=== PATIENT | male | born 1955 | race Caucasian/White ===

== ENCOUNTER 2023-06-03 07:06 | Day surgery (SDC) | payer MEDICARE, BC, SELFPAY ==
[2023-06-03] VITALS (10 sets, daily range): BP systolic 146–167; BP diastolic 77–79; BMI 28.5
[2023-06-03 07:32] LABS: Hematocrit 40.5 % (39.0-52.0); Hemoglobin 14.6 g/dL (13.0-18.0); Mean Corpuscular Hgb 32.3 pg (27.0-31.0); Mean Corpuscular Volume 89.6 fL (80.0-94.0); Platelet Count 209 10^3/uL (130-400); Red Blood Cell Count 4.52 10^6/uL (4.70-6.10); Red Cell Dist. Width 12.6 % (11.5-14.5)
[2023-06-03 07:46] LABS: Blood Urea Nitrogen 20 mg/dl (9-20); Calcium 9.7 mg/dl (8.4-10.2); Carbon Dioxide 29 mmol/L (22-30); Chloride 105 mmol/L (98-107); Estimated Creatinine Clearance 107 ml/min; Glucose 170 mg/dl (70-99); Potassium 4.3 mmol/L (3.5-5.1); Sodium 140 mmol/L (135-145); eGFR > 60.00
[2023-06-03] MEDS: LOW STRENGTH ASPIRIN 81 MG PO (07:57)
[2023-06-03] MEDS: NSS 1000 IV ×2 (07:57→09:22)
--- NOTE | 2023-06-03 09:33 | ITS.CL.CATH ---
Surveying Crew Stake Runner - Catheterization
Cardiac Catheterization
Procedure Report:
LEFT HEART CATHETERIZATION
Date of Procedure: June 03, 2023
Procedures performed:
1: Coronary angiography
2: Left ventriculography
Primary Care Physician: GAIL Kilpatrick
Primary Civil Engineering Project Manager: Dr. Ga Barcenas
INDICATION: The patient is a 67-year-old man with a past medical history significant for hypertension who presents with angina. Echocardiography performed in December was benign. Nuclear perfusion imaging stress test performed January 09 of last
year showed a mild to moderate area of inferior ischemia. He has had persistent angina on medical therapy and is referred for cardiac catheterization.
ACCESS: The patient was prepped and draped in usual sterile fashion. A 6 Irish sheath was placed in the right radial artery using the Seldinger over the wire technique.
HEMODYNAMIC FINDINGS (mmHg):
LV(s/d,EDP): 148/9, 20
Ao(s/d,m): 148/68, 95
ANGIOGRAPHIC FINDINGS:
Single-plane Left Ventriculography in POWERS Projection: Normal LV systolic function with no clear regional wall motion abnormality. Visually estimated ejection fraction 55%. No significant mitral regurgitation.
Coronary Angiography:
Dominance: Left
Left Main: Normal
Left Anterior Descending: The left anterior descending artery is a medium caliber vessel that is moderately calcified particularly in the midportion. The LAD itself has a smooth ostial 40% stenosis with diffuse moderate nonobstructive proximal
disease. The mid LAD has smooth 50 to 70% disease with normal distal flow and good surgical target with only mild luminal irregularities. The LAD gives rise to 1 major diagonal branch which has a ostial 60-70% stenosis with normal flow.
Left Circumflex: The left circumflex is a large-caliber dominant vessel. The major first obtuse marginal branch is flush occluded and fills via left to left collaterals. The distal circumflex gives rise to 4 left-sided posterior left ventricular
branches and the left sided posterior descending artery is proximally occluded and fills via left to left collaterals.
Right Coronary: Proximal total occlusion. There appears to be RV marginal branch filling from left to right collaterals.
Fluoroscopy Time (min): 2.9
Radiation Dose (mGy): 431
DAP (Gy.cm2): 30
Closure device: None. A TR band was applied for hemostasis at the right wrist.
Complications: None.
ASSESSMENT:
1: Multivessel obstructive coronary disease. Especially given some degree of ostial LAD disease, although the mid LAD could be treated with stenting, I favor complete surgical revascularization in light of his calcific disease with targets in the
LAD, diagonal, OM, and possibly left PDA.
2: Preserved LV systolic function with no significant mitral rotation.
CONCLUSIONS and RECOMMENDATIONS:
1: CT surgical evaluation for CABG.
2: Continue medical therapy for coronary artery disease with clinical follow-up with Dr. Barcenas as scheduled.
Layo Martinez M.D.
Copy to: GAIL Kilpatrick
== END 2023-06-03 11:46 | disposition home or self-care (01) ==
LOC: CATH 07:06
PROVIDERS: ATTENDING PHYSICIAN Internal Medicine Interventional Cardiology; FAMILY PHYSICIAN Nurse Practitioner
DX: I25.119 Atherosclerotic heart disease of native coronary artery with unspecified angina pectoris (principal); I10 Essential (primary) hypertension; E78.5 Hyperlipidemia, unspecified; E11.9 Type 2 diabetes mellitus without complications; Z79.82 Long term (current) use of aspirin; Z79.84 Long term (current) use of oral hypoglycemic drugs
CPT/HCPCS: C1769; 80048; 85027; 93005; 93458; C1894; Q9967

== ENCOUNTER → 2023-06-18 13:21 | Outpatient (REF) | payer MEDICARE, BC, SELFPAY | LOC: RAD 13:21 | PROVIDERS: ATTENDING PHYSICIAN Thoracic Surgery (Cardiothoracic Vascular Surgery); FAMILY PHYSICIAN Nurse Practitioner; REFERRING PHYSICIAN Internal Medicine | DX: I25.10 Atherosclerotic heart disease of native coronary artery without angina pectoris (principal); Z01.818 Encounter for other preprocedural examination | CPT/HCPCS: 71250 ==

== ENCOUNTER 2023-06-24 04:48 | Inpatient (IN) | payer MEDICARE, BC, SELFPAY ==
[2023-06-19 09:12] LABS: Urine Albumin Negative (Neg - Trace); Urine Bilirubin Negative (Negative); Urine Character Clear (Clear); Urine Color Yellow; Urine Glucose 3+ (Negative); Urine Ketone Trace (Negative); Urine Leukocyte Negative (Negative); Urine Nitrite Negative (Negative); Urine Occult Blood Negative (Negative); Urine Urobilinogen Negative (Neg - 1+)
[2023-06-19 09:33] LABS: % Basophils 0.6 % (0-2); % Eosinophils 1.7 % (0-6); % Immature Granulocytes 0.2 % (0-0.5); % Lymphocytes 19.7 % (20.5-51.1); % Neutrophils 68.8 % (42.2-75.2); Absolute Eosinophils 0.1 10^3/uL (0-0.7); Absolute Lymphocytes 1.3 10^3/uL (1.2-3.4); Absolute Monocytes 0.6 10^3/uL (0.1-0.6); Absolute Neutrophils 4.5 10^3/uL (1.4-6.5); Hematocrit 43.8 % (39.0-52.0); Hemoglobin 15.6 g/dL (13.0-18.0); Mean Corp Hgb Conc. 35.6 g/dL (33.0-37.0); Mean Corpuscular Hgb 32.1 pg (27.0-31.0); Mean Corpuscular Volume 90.1 fL (80.0-94.0); Mean Platelet Volume 11.3 fL (7.4-10.4); Nucleated Red Blood Cells % 0 % (-); Platelet Count 229 10^3/uL (130-400); Red Blood Cell Count 4.86 10^6/uL (4.70-6.10); Red Cell Dist. Width 12.4 % (11.5-14.5); White Blood Cell Count 6.5 10^3/uL (4.8-10.8)
[2023-06-19 09:38] LABS: INR 0.95; PT 12.5 Sec (11.4-14.6)
[2023-06-19 09:40] LABS: APTT 27.5 Sec (23.4-35.0)
--- NOTE | 2023-06-19 09:44 | CM ---
Met with Mr. Cotton in [facility]. He states prior to admission he resides with his spouse in a two story home with one step to enter. He states he has a full flight of steps to get to bedroom/full bathroom. He states he has a powder room on the first
floor. He states prior to admission he was independent with ambulation and adls. He states he does not have any DME in the home. He states he has a prescription plan. He states his spouse will be home to assist in his care if needed. Medical
work-up in progress. The discharge plan is to return home with his spouse and a home visit by the Cardiothoracic Transitional Care Nurse when medically stable.
We reviewed pre-op and post-op routines. We reviewed the shower instructions. He has the soap, written instructions and the Cardiothoracic Surgery Educational Booklet. We also reviewed restrictions including sternal precautions and driving
restrictions. We discussed a home visit by the Cardiothoracic Transitional Care Nurse. He is agreeable to a home visit. The discharge plan is to return home with his spouse and a home visit by the Cardiothoracic Transitional Care Nurse when
medically stable.
[2023-06-19 09:59] LABS: ALT (SGPT) 34 U/L (0-50); AST (SGOT) 34 U/L (17-59); Albumin 4.9 g/dl (3.5-5.0); Alkaline Phosphatase 81 U/L (38-126); Blood Urea Nitrogen 18 mg/dl (9-20); Calcium 9.8 mg/dl (8.4-10.2); Carbon Dioxide 28 mmol/L (22-30); Chloride 103 mmol/L (98-107); Direct Bilirubin 0.4 mg/dl (0.0-0.4); Glucose 168 mg/dl (70-99); Sodium 138 mmol/L (135-145); Total Bilirubin 0.7 mg/dl (0.2-1.3); Total Protein 7.7 g/dl (6.3-8.2); eGFR > 60.00
[2023-06-19 11:18] VITALS: BMI 27.7
[2023-06-19 14:35] LABS: Glycohemoglobin (HgbA1c) 6.9 % (4.0-5.6)
[2023-06-24] VITALS (12 sets, daily range): BP systolic 90–145; BP diastolic 55–83; BMI 26.8
--- NOTE | 2023-06-24 05:07 | PTCARENOTE ---
Patient admitted same day for CABG with Dr. Meehan. intake questions completed, ABO drawn, medications administered preop. Patient clipped. Awaiting call to OR.
[2023-06-24] MEDS: BACTROBAN 2% OINTMENT 1 APPLIC NASAL (05:15)
[2023-06-24] MEDS: LOPRESSOR 25 MG PO (05:15)
[2023-06-24] MEDS: MAGNESIUM OXIDE 500 MG PO (05:16)
[2023-06-24] MEDS: PROTONIX 40 MG PO (05:16)
[2023-06-24 07:25] LABS: ACT+ - POC 93 Seconds (82-134)
[2023-06-24 07:29] LABS: Urine Albumin Negative (Neg - Trace); Urine Bilirubin Negative (Negative); Urine Character Clear (Clear); Urine Glucose 1+ (Negative); Urine Ketone Negative (Negative); Urine Leukocyte Negative (Negative); Urine Nitrite Negative (Negative); Urine Occult Blood Negative (Negative); Urine Specific Gravity 1.015 (<1.030); Urine Urobilinogen Negative (Neg - 1+)
[2023-06-24 07:53] LABS: Urine Color Yellow
[2023-06-24 10:36] LABS: ACT+ - POC 519 Seconds (82-134)
[2023-06-24 11:17] LABS: ACT+ - POC 641 Seconds (82-134)
[2023-06-24 11:44] LABS: ACT+ - POC 530 Seconds (82-134)
--- NOTE | 2023-06-24 11:48 | CM ---
Chart reviewed. Patient is in the OR today. Patient is independent of ADLS, lives with his in a 2 STH, 1 BLAISE, 0 DME. Plan is for the patient to return home with CT Transitional RN. CM to follow
[2023-06-24 12:14] LABS: ACT+ - POC 580 Seconds (82-134)
[2023-06-24 12:36] LABS: ACT+ - POC 509 Seconds (82-134)
[2023-06-24 12:51] LABS: ACT+ - POC 474 Seconds (82-134)
[2023-06-24 13:24] LABS: ACT+ - POC 123 Seconds (82-134)
[2023-06-24] MEDS: NOVOLOG FLEXPEN SC ×2 (14:00→15:07)
[2023-06-24] MEDS: NEURONTIN PO ×2 (14:00→15:07)
[2023-06-24] MEDS: TYLENOL PO (14:00)
--- NOTE | 2023-06-24 14:08 | W.CVOR.SURPR ---
CVOR Surgeon Immed Pre Op
-
I have examined this patient prior to performance of the scheduled procedure.
The patient's condition is unchanged from the time of the dictated/written History and
Physical and the patient is able to undergo the scheduled procedure.
--- NOTE | 2023-06-24 14:08 | W.IMMPOSTOP ---
Addendum entered and electronically signed by Patricio Meehan MD 06/24/23 15:16:
[id number]
Original Note:
Surgical Immed Post Op Note
-
CARDIAC SURGERY OPERATIVE NOTE:
Preoperative Dx:
Multivessel CAD
Postoperative Dx:
Same
Procedures:
1) Median sternotomy
2) Takedown of CHRISTIAN (narrow pedicle)
3) Endoscopic harvest/prep of L RA
4) Endoscopic harvest/prep of LLE GSV
5) CABG x 4 (CHRISTIAN to LAD, L RA to OM1, GSV to D1, GSV to L PDA)
Surgeon:
Patricio Meehan M.D.
Assistants:
Natacha MalhotraA.-CHilario; endoscopic harvest/prep of LLE GSV, assistant banquet manager throughout, closure
lAex Miles P.A.-C.; endoscopic harvest/prep of L RA, closure of L RA and L GSV incisions
Natacha EchevarriaA.-CHilario; closure; [id number]
Anesthesia:
Jenaro Mendez M.D. and Naye Lutz, C.R.N.A.
Perfusion:
Amanda Hunter, C.C.P.; XC: 76min, CPB: 128min
Findings:
CHRISTIAN was healthy conduit w/ very brisk blood flow; ELD 3.0mm
GSV was healthy conduit w/ slightly large ELD at 4.0-4.5mm
RA was healthy conduit w/ ELD 3.0mm
LAD was visible on the epicardial surface, normal johnson at midpoint anastomosis w/ ELD 3.5mm
D1 was visible on the epicardial surface, normal johnson, ELD 3.0mm
OM1 was visible as it left the AV groove before taking a shallow (<0.5mm) intramyocardial course, ELD 2.5mm
LPDA was visible on the epicardial surface, ELD 2.50mm
Excellent flow in all grafts
Post-NICOLAS:
Implants:
CT x 4 (B/L pleural, inferior mediastinal, superior mediastinal)
Sternal wires x 7
Sternal 'X' plate w/ 8 - 12mm screws
Sternal 'square' plate w/ 4 - 10mm screws
Complications:
None
Transfusions:
None
Condition:
57 sinus w/ isoelectric STs. 96/57. CVP 17. 98%
GTTS: levophed 2, precedex 0.5, insulin 1, cardene 3
Stable/guarded to CVICU
--- NOTE | 2023-06-24 14:30 | PTCARENOTE ---
Addendum entered by Janet Valdes RN 06/24/23 18:48:
Left radial graft site covered with Aquacel-CDI.
Original Note:
Received patient from CVOR at 1430. Pt intubated and sedated. RASS -5. PERRLA 3 brisk. POX 98%. ETT 8.0 24cm at the lip. SIMV 60% 14 550 5/5. Lungs clear throughout. Right and left pleural chest tubes y-sited to 1 atrium to -20cm suction draining
red fluid. Mediastinal x2 chest tubes y-sited to 1 atrium to -20 cm suction draining red fluid. No air leak, tidaling, crepitus noted. NSR with 1st degree block on tele with rates in the 60s. BP supported with levophed gtt. Cardene infusion on upon
arrival-for radial graft site. CVP 10. Right radial and left ulnar and bilateral DP pulses palpable. No edema noted. +Rub. Abdomen soft, round, nontender. Hypoactive BS. Miller catheter intact draining clear yellow urine. Sternal incision covered
with Aquacel-CDI. Chest tube dressing CDI. Left groin puncture site with small ooze, 2x2 gauze placed. Left SVG site approximated with skin glue, TYRESE wrap intact. Left lower leg ESTHER intact draining sanguinous drainage. Right IJ cordis and slick
intact. Right radial federico intact. All lines flushed, leveled, and zeroed with appropriate waveform. Right hand 20g PIV intact infusing insulin gtt per Critical Care Glycemic Protocol. See MAR for medication administration. See worklist for complete
nursing assessment. Post op EKG, labs, and CXR obtained.
[2023-06-24 14:48] LABS: Hematocrit 31.3 % (39.0-52.0); Hemoglobin 11.4 g/dL (13.0-18.0); Platelet Count 193 10^3/uL (130-400)
[2023-06-24 14:49] LABS: B.E. -1.2 mmol/L; HCO3 24.3 mmol/L (21-28); O2 Saturation % 99.7 % (94-98); PCO2 43 mmHg (35-48); PO2 206 mmHg (83-108); Potassium 4.1 mMOL/L (3.5-5.1); Sodium 140 mMOL/L (136-145); pH 7.36 (7.35-7.45)
[2023-06-24 14:51] LABS: Glucose - Point of Care 137 mg/dl (70-99)
--- NOTE | 2023-06-24 14:52 | CON.INTV ---
Consultation
Consultation Request
Date/Time Consultation Requested: 06-24-23
Date/Time Consultation Performed: 06-24-23
Requesting Provider: Dr Meehan
Performing Provider: Dr Olson
Reason for Consultation: s/p CABG MV
Medical History
-
Chief Complaint: s/p CABG
History of Present Illness:
Mr Patricio Cotton is a 67/M adm 06-23 for scheduled CABG for multivessel CAD.
Seen by Dr Meehan at office for evaluation of surgical intervention for multivessel CAD.
Received CABG x4, seen at CVICU, still sedated, well synchronized to MV
Past Medical History
Past Medical History: Other (see A&P form PMH/PSH)
Social History
Tobacco: Non-smoker
Alcohol: Occasional
Personal:
Living: With Family
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
Family History
Family History: CAD (M: CABG)
Allergies / Home Medications
Allergies
Allergy/AdvReac Type Severity Reaction Status Date / Time
sulfamethoxazole Allergy Unknown Swelling Verified 06/17/23 10:05
trimethoprim Allergy Unknown Swelling Verified 06/17/23 10:05
pollen extracts Allergy seasonal/gr Verified 06/17/23 10:05
ass
Home Medications
�Medication �Instructions �Recorded �Confirmed �Last Taken �Type
Saccharomyces boulardii 250 mg 250 mg PO .EVERY OTHER DAY 06/03/23 06/17/23 06/02/23 10:00 History
capsule Gastrointestinal Issue
aspirin 81 mg chewable tablet 81 mg PO QPM Blood Clot 06/03/23 06/24/23 06/23/23 18:30 History
Prevention/Tx
duloxetine 60 mg capsule,delayed 60 mg PO QPM Mental Health/Anxiety 06/03/23 06/24/23 06/23/23 15:00 History
release
isosorbide mononitrate 60 mg 60 mg PO QPM Blood Pressure 06/03/23 06/24/23 06/23/23 18:30 History
tablet,extended release 24 hr
ketoconazole 2 % topical cream 1 applic topical BID PRN as needed 06/03/23 06/17/23 Unknown History
losartan 50 mg tablet 50 mg PO QPM Blood Pressure 06/03/23 06/24/23 06/23/23 18:30 History
metformin 1,000 mg tablet 1,000 mg PO BID Diabetes 06/03/23 06/24/23 06/23/23 18:30 History
metoprolol succinate 50 mg 50 mg PO QPM Heart 06/03/23 06/24/23 06/23/23 18:30 History
tablet,extended release 24 hr Disease/Condition
multivitamin 1 tab PO DAILY Supplement 06/03/23 06/17/23 06/02/23 10:00 History
nitroglycerin 0.4 mg sublingual 0.4 mg sublingual Q5-15M PRN chest 06/03/23 06/17/23 Unknown History
tablet pain
vitamins A,C,J-lptq-ukcdex 4,296 1 cap PO QAM AND QPM Supplement 06/03/23 06/24/23 06/02/23 10:00 History
mcg-226 mg-90 mg capsule
(PreserVision AREDS)
Medical Marijuana 1 tab PO PRN PRN pain 06/17/23 06/17/23 Unknown History
rosuvastatin 20 mg tablet 20 mg PO QPM High Cholesterol 06/17/23 06/24/23 06/23/23 18:30 History
amlodipine 5 mg tablet 5 mg PO DAILY 06/24/23 06/24/23 Unknown History
Review of Systems
-
Unable to Obtain full review of systems at this time due to: Patient Intubation
Vitals / Labs / Diagnostic Testing
Vital Signs
Pulse BP
92 140/83
06/24/23 05:15 06/24/23 05:15
Laboratory Results
06/24/23
14:38
pH 7.36
pCO2 43
pO2 206 H
HCO3 24.3
O2 Delivery Level
Diagnostic Testing:
Physical Exam
-
HEENT: Normocephalic and Moist Mucous Membranes
Cardiovascular: Regular Rhythm, Peripheral Edema (n) and Other (RIJ cordis)
Respiratory: Clear, Non-Labored Respirations and Other (chest and mediastinal tubes)
GI: Soft and Non Distended
Neurology: Other (sedated)
Skin: Warm
General: Respiratory Distress (n)
Assessment
-
Assessment:
Mr Patricio Cotton is a 67/M adm 06-23 for scheduled CABG for multivessel CAD. Seen by Dr Meehan at office for evaluation of surgical intervention for multivessel CAD. Received CABG x4, seen at CVICU, still sedated, well synchronized to MV
Impression:
CAD, s/p CABG x 4 (CHRISTIAN to LAD, L RA to OM1, GSV to D1, GSV to L PDA)
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
Angina
HTN
HLD
T2DM
PAD
Cervical spine disc disease
BPH
OA L knee s/p L TKR
Bipolar disease
L inguinal hernia repair
Trigeminal neuralgia
Migraine
Occipital neuralgia
Insomnia
Post COVID chronic fatigue
Nonsmoker
Plan:
Ventilator settings reviewed
SIMV: [id number] (POx 99%)
FiO2 will be weaned
Minute ventilation will be adjusted
Arterial blood gases will be monitored
Preop CXR 05-10 PA/lat with no abnormalities
Postop CXR: ET, RIJ cordis, chest/med tubes in place. Sternotomy wiring, surgical clips. L basilar atelectatic changes
Spontaneous breathing trial will be attempted with hopeful extubation after anesthesia/sedation wear off
Pressors/antihypertensive/inotropes/diuretics will be provided as needed
Monitor chest tube output
Monitor hemoglobin
Monitor platelet count and coags
Transfuse blood product if needed
CT surgery following chest tubes
Monitor blood sugar
Insulin drip per protocol
Aspiration precautions
VAP prevention protocol
DVT prophylaxis
Early nutrition
Early mobilization
Critical care time: 35 min
D/w CTSx RN
--- NOTE | 2023-06-24 14:55 | W.PN.UPDATE ---
Update Note
Progress Note Update
67 year old male electively admitted 06/23 for CABG for multivessel coronary disease and history of stable angina.
IV fluids: 2500�
U.O.:� 750
UF:�1000
Blood:� none
Wires:� none
Inotropes:� none
Pressors:� Levophed
Sedatives:� Precedex
�
NEURO: sedated on Precedex, pupils +2mm B/L
RESP: #8OT @23cm> 550/60%/01/13. Lungs clear B/L. 2 mediastinal (0cc on arrival) and R/L pleural (0cc on arrival) chest tubes to -20cm suction. Sanguineous drainage
CV: RRR +S1, S2, no S3, +rub, no murmur. Aquacell dressing to median sternotomy. RIJ w/o [place]
ABD: round, soft, no BS
EXT: no edema, +2/4 DP pulses B/L, no femoral bruit, LLE TYRESE wrap intact w/ESTHER drain; right radial A-line intact
: Miller with clear yellow urine
�
A/P: POD #0 s/p CABG x 4 WOODWARD-LAD; radial-OM1; SVG-diag1; SVG-LPDA
NICOLAS: EF�55%. MIld MR, trace TR
- wean and extubate
# CAD
- will require ASA/Plavix, statin, beta-marisol
�
# acute surgical blood loss anemia-expected
- trend CBC
�
�
# T2DM (A1C 6.9)
- insulin infusion x 48h
- resume MFM 100mg BID with SSI after insulin infusion protocol completed
# Depression
- resume Duloxetine 60mg qPM when tolerating solids
�
# Hypertension
- resume�Norvasc 5mg daily when off Levophed and as BP permits
[2023-06-24 15:03] LABS: INR 1.42; PT 17.4 Sec (11.4-14.6)
[2023-06-24 15:04] LABS: APTT 30.1 Sec (23.4-35.0)
[2023-06-24] MEDS: DILAUDID 0.5 MG IV ×3 (15:05→23:54)
[2023-06-24] MEDS: PACERONE PO (15:07)
[2023-06-24] MEDS: NSS 500 IV (15:07)
[2023-06-24] MEDS: ANCEF 10 IV ×2 (15:07)
[2023-06-24 15:14] LABS: Blood Urea Nitrogen 18 mg/dl (9-20); Estimated Creatinine Clearance > 125 ml/min; Glucose 125 mg/dl (70-99); Magnesium 2.6 mg/dl (1.6-2.3)
--- NOTE | 2023-06-24 15:30 | PTCARENOTE ---
Pt awakens and follows commands to squeeze hands, wiggle toes, and shakes his head yes/no appropriately. RT notified and placed pt on cpap trial at 1535. POX 100% pt tolerating.
--- NOTE | 2023-06-24 15:51 | CON.CAR ---
Addendum entered and electronically signed by Erin Varghese MD 06/24/23 16:45:
I saw and examined the patient.
The Clinical Project Leader's note was reviewed and I agree with the note.
Comment: Patient is a 67-year-old gentleman with past medical history of hypertension, hyperlipidemia, type 2 diabetes mellitus, peripheral artery disease, trigeminal neuralgia, bipolar disorder, BPH who was found to have multivessel coronary artery
disease on heart catheterization performed June 03, 2023 in the setting of persistent angina despite optimal medical therapy and an abnormal stress test showing a mild to moderate area of inferior ischemia now status post four-vessel coronary
artery bypass grafting by Dr. Patricio Meehan on June 24, 2023 with WOODWARD to LAD, left radial artery to OM1, saphenous vein graft to diagonal, saphenous vein graft to L PDA with intraoperative NICOLAS showing LVEF of 55 to 60% without regional wall motion
abnormalities.
He remains intubated and sedated on 1 mcg of Levophed and 2.5 of Cardene for radial graft patency. Vital signs and lab work reviewed. ECG without signs of acute ischemia, nonspecific T wave change. QTc is prolonged.
On exam patient is intubated sedated, normal S1 and S2, no murmurs, rubs or gallops, sternotomy wound is covered, clean dry and intact, lungs are clear to auscultation anteriorly, chest tubes are in place with serosanguineous output, warm
extremities without significant edema.
Recommendations:
1. Wean ventilator as tolerated.
2. Wean pressors as tolerated.
3. We will work on resuming home cardiac medications as hemodynamics allow.
4. Continue supportive postoperative care.
Erin Varghese MD, [facility], [facility]
Original Note:
Consultation
Consultation Request
Date/Time Consultation Requested: 06/24/2023
Date/Time Consultation Performed: 06/24/2023
Requesting Provider: Dr. Meehan
Performing Provider: Alda Dominguez PA-C for Dr. Varghese
Reason for Consultation: CAD/CABG
Medical History
-
History of Present Illness:
The patient is a 67-year-old man with a past medical history significant for hypertension who presented to outside trim setter with angina in December 2022. Echocardiography performed in December 2022 was benign. Nuclear perfusion imaging stress
test performed January 09, 2023 showed a mild to moderate area of inferior ischemia. He had persistent angina on medical therapy and is referred for cardiac catheterization which was performed on 06/03/2023 and demonstrated multivessel obstructive
coronary artery disease including ostial LAD, mid LAD ostial diagonal disease occluded first obtuse marginal with left to left collaterals LPDA occlusion with left to left carotid collaterals and chronic total occlusion of RCA with [id number]
collaterals. Patient was referred to CT surgery for surgical evaluation and CABG. Patient was electively admitted 06/24/2023 and underwent CABG x 4. Cardiology being asked to see patient for postoperative medical management
PMH:
Multivessel coronary artery disease
Hypertension
Hyperlipidemia
Type 2 diabetes
PAD
Cervical spine disc disease
BPH
OA L knee s/p L TKR
Bipolar disease
L inguinal hernia repair
Trigeminal neuralgia
Migraine
Occipital neuralgia
Insomnia
Post COVID chronic fatigue
Past Medical History
Past Medical History: Other (see HPI)
Past Surgical History: Orthopedic (Lt TKA) and Other (Inguinal hernia repair)
Social History
Tobacco: Non-Smoker
Alcohol: Occasional
Drug: Marijuana (medical)
Personal: Single
Living: With Family
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
Family History
Family History: CAD (Mother CABG)
Allergies / Home Medications
Allergy/AdvReac Type Severity Reaction Status Date / Time
sulfamethoxazole Allergy Unknown Swelling Verified 06/17/23 10:05
trimethoprim Allergy Unknown Swelling Verified 06/17/23 10:05
pollen extracts Allergy seasonal/gr Verified 06/17/23 10:05
ass
�Medication �Instructions �Recorded �Confirmed �Type
Saccharomyces boulardii 250 mg 250 mg PO .EVERY OTHER DAY 06/03/23 06/17/23 History
capsule Gastrointestinal Issue
aspirin 81 mg chewable tablet 81 mg PO QPM Blood Clot 06/03/23 06/24/23 History
Prevention/Tx
duloxetine 60 mg capsule,delayed 60 mg PO QPM Mental Health/Anxiety 06/03/23 06/24/23 History
release
isosorbide mononitrate 60 mg 60 mg PO QPM Blood Pressure 06/03/23 06/24/23 History
tablet,extended release 24 hr
ketoconazole 2 % topical cream 1 applic topical BID PRN as needed 06/03/23 06/17/23 History
losartan 50 mg tablet 50 mg PO QPM Blood Pressure 06/03/23 06/24/23 History
metformin 1,000 mg tablet 1,000 mg PO BID Diabetes 06/03/23 06/24/23 History
metoprolol succinate 50 mg 50 mg PO QPM Heart 06/03/23 06/24/23 History
tablet,extended release 24 hr Disease/Condition
multivitamin 1 tab PO DAILY Supplement 06/03/23 06/17/23 History
nitroglycerin 0.4 mg sublingual 0.4 mg sublingual Q5-15M PRN chest 06/03/23 06/17/23 History
tablet pain
vitamins A,C,M-zfbx-mqjkix 4,296 1 cap PO QAM AND QPM Supplement 06/03/23 06/24/23 History
mcg-226 mg-90 mg capsule
(PreserVision AREDS)
Medical Marijuana 1 tab PO PRN PRN pain 06/17/23 06/17/23 History
rosuvastatin 20 mg tablet 20 mg PO QPM High Cholesterol 06/17/23 06/24/23 History
amlodipine 5 mg tablet 5 mg PO DAILY 06/24/23 06/24/23 History
Review of Systems
-
Unable to obtain full review of systems at this time due to: Patient Intubation
Physical Exam
Vital Signs
Temp Pulse Resp BP Pulse Ox
97.6 F 65 13 140/83 99
06/24/23 15:00 06/24/23 15:15 06/24/23 15:15 06/24/23 05:15 06/24/23 15:35
GEN: Patient intubated and sedated
HEENT: supple, anicteric, mmm
LUNGS: CTA anteriorly, no wheezes/rales
CV: Reg, S1/S2, no murmur, +rub LSB
ABD: soft, BS+, NT/ND
EXT: No edema, clubbing or cyanosis; legs wrapped in Abhishek wraps
NEURO: Unable to assess intubated and sedated
SKIN: No rash, warm, dry, pink
Lab Results
06/24/23 14:38
Impression / Plan
-
Primary Care Physician: GAIL Kilpatrick
Primary Driver'S Education Instructor: Dr. Ga Barcenas
Impression:
Presented 06/24/2023 for elective CABG
Multivessel coronary artery disease
s/p CABG x 4 (WOODWARD-LAD, Lt Radial-OM1, GSV to D1, GSV to L PDA)
Hypertension
Hyperlipidemia
Type 2 diabetes
PAD
Cervical spine disc disease
BPH
OA L knee s/p L TKR
Bipolar disease
L inguinal hernia repair
Trigeminal neuralgia
Migraine
Occipital neuralgia
Insomnia
Post COVID chronic fatigue
Echo 12/2022 ([facility]): EF 55 to 60%, mild MR with mild MAC, mild AI, RVSP 30 mmHg
Nuclear stress test 01/09/2023: mild to moderate area of inferior ischemia
[facility] 06/03/23:Left Main: Normal; LAD: ostial 40% stenosis with diffuse moderate nonobstructive proximal disease. The mid LAD has smooth 50 to 70% disease with normal distal flow and good surgical target with only mild luminal irregularities. The LAD
gives rise to 1 major diagonal branch which has a ostial 60-70% stenosis with normal flow. Left Circumflex: The left circumflex is a large-caliber dominant vessel. The major first obtuse marginal branch is flush occluded and fills via left to left
collaterals. The distal circumflex gives rise to 4 left-sided posterior left ventricular branches and the left sided posterior descending artery is proximally occluded and fills via left to left collaterals. Right Coronary: Proximal total
occlusion. There appears to be RV marginal branch filling from left to right collaterals.
Plan:
-MVCAD s/p CABG x 4 (WOODWARD->LAD, Lt Radial-OM1, GSV->D1, GSV->L PDA) 06/24/23
-Intra-op NICOLAS: EF 55-60%. No wall motion abnormalities are seen. Trace to mild mitral regurgitation is seen.
-Seen immediately post op remains intubated and sedated
-wean off vent as tolerated
-On Cardene gtt 2.5 mg/h for radial artery spasm
-On Levophed 1 mcg/kg/min, wean as tolerated
-Post op ECG Sinus rhythm with 1st AVB, T wave inversion in inferior leads and non-specific T wave abnormality in lateral leads, QTc 499 ms
-Continue to monitor on tele
-Post op 11.4, continue to monitor
-Plavix for graft patency when able to tolerate orals
-Resume usual post op medications Metoprolol, ASA, Crestor, Metformin when able to tolerate oral
HPI 06/24/2023:
The patient is a 67-year-old man with a past medical history significant for hypertension who presented to outside trim setter with angina in December 2022. Echocardiography performed in December 2022 was benign. Nuclear perfusion imaging stress
test performed January 09, 2023 showed a mild to moderate area of inferior ischemia. He had persistent angina on medical therapy and is referred for cardiac catheterization which was performed on 06/03/2023 and demonstrated multivessel obstructive
coronary artery disease including ostial LAD, mid LAD ostial diagonal disease occluded first obtuse marginal with left to left collaterals LPDA occlusion with left to left carotid collaterals and chronic total occlusion of RCA with [id number]
collaterals. Patient was referred to CT surgery for surgical evaluation and CABG. Patient was electively admitted 06/24/2023 and underwent CABG x 4. Cardiology being asked to see patient for postoperative medical management
Data Reviewed
-
EKG: Report Reviewed by me, Discussed with Physician and Discussed with Nurse
Labs: Labs Reviewed by me, Discussed with Physician and Discussed with Nurse
Old Records: Reviewed
[2023-06-24 16:07] LABS: Glucose - Point of Care 135 mg/dl (70-99)
[2023-06-24 16:27] LABS: HCO3 24.8 mmol/L (21-28); Ionized Calcium 1.19 mMOL/L (1.15-1.33); O2 Saturation % 99.5 % (94-98); PCO2 45 mmHg (35-48); PO2 139 mmHg (83-108); Potassium 4.1 mMOL/L (3.5-5.1); pH 7.35 (7.35-7.45)
--- NOTE | 2023-06-24 16:33 | PTCARENOTE ---
Pt extubated to 6L NC by RT. Pt tolerated POX 100%. Pt able to state his name and . IS encouraged by RT, 1000mL achieved. Pt's brought to bedside.
[2023-06-24 17:06] LABS: Glucose - Point of Care 113 mg/dl (70-99)
[2023-06-24] MEDS: CYMBALTA DELAYED RELEASE 60 MG PO (17:36)
[2023-06-24] MEDS: ROXICODONE 5 MG PO ×2 (17:36→21:36)
[2023-06-24] MEDS: FLEXERIL 5 MG PO (17:36)
[2023-06-24] MEDS: CRESTOR 20 MG PO (17:36)
[2023-06-24] MEDS: LOW STRENGTH ASPIRIN 81 MG PO (17:39)
[2023-06-24 17:57] LABS: Glucose - Point of Care 137 mg/dl (70-99)
[2023-06-24 18:22] LABS: Hematocrit 31.6 % (39.0-52.0); Hemoglobin 11.6 g/dL (13.0-18.0); Platelet Count 153 10^3/uL (130-400)
[2023-06-24 18:56] LABS: Glucose - Point of Care 148 mg/dl (70-99)
[2023-06-24] MEDS: ANCEF 5 IV (19:19)
[2023-06-24] MEDS: SENOKOT-S PO (19:26)
--- NOTE | 2023-06-24 19:40 | PTCARENOTE ---
Received pt from dayshift; pt is resting in bed, at bedside; pt AAOx4, NSR on monitor with 1st degree AVB, VSS; heart sounds audible, rub present, right radial and left ulnar pulses palpable, DP pulses palpable, no edema noted; lung sounds
diminished throughout, spo2 95% on RA, x2 MS and right/left pleural CT to -20 wall suction, no air leaks, no tidaling, no crepitus; hypoactive BS x4 quadrants, abdomen soft non tender; pt voiding clear yellow urine via valle catheter; surgical site
dressings CDI; right IJ cordis/slick, right radial A-line, and PIV all maintained, leveled, and zeroed; Cardene and insulin gtt infusing; call edmond within reach; will continue to monitor.
[2023-06-24] MEDS: BACTROBAN 2% OINTMENT NASAL ×2 (20:05→20:47)
[2023-06-24 20:59] LABS: Glucose - Point of Care 135 mg/dl (70-99)
[2023-06-24] MEDS: TYLENOL 1000 MG PO (21:36)
[2023-06-24] MEDS: NEURONTIN 100 MG PO (21:36)
--- NOTE | 2023-06-24 23:00 | PTCARENOTE ---
report received from previous RN, walking rounds done. pt in bed, AAOx4. pt c/o sternal incision pain. 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 pt SR w 1st degree AVB on monitor, HR 70's. Cardene gtt infusing @ 12.5mg for radial graft site. RIJ cordis intact w
KVO infusing. right radial art line intact. SBP 110's. POX 98% on 4LNC. CT x4 intact to -20cm wall suction, drainage WNL, no air leak present. valle catheter intact, draining CYU, UO adequate. insulin gtt infusing per glycemic protocol. all surgical
sites stable. left leg ESTHER drain intact, minimal drainage noted. see worklist for full assessment, VS, and interventions. pt resting between care.
[2023-06-24 23:52] LABS: Glucose - Point of Care 110 mg/dl (70-99)
[2023-06-25] VITALS (22 sets, daily range): BP systolic 97–143; BP diastolic 54–77; PULSE 68; O2SAT 97–98; BMI 27.2
[2023-06-25 00:56] LABS: Glucose - Point of Care 97 mg/dl (70-99)
[2023-06-25 02:56] LABS: Glucose - Point of Care 117 mg/dl (70-99)
[2023-06-25 03:45] LABS: Hematocrit 31.1 % (39.0-52.0); Hemoglobin 11.5 g/dL (13.0-18.0); Mean Corpuscular Hgb 32.7 pg (27.0-31.0); Mean Corpuscular Volume 88.4 fL (80.0-94.0); Mean Platelet Volume 11.1 fL (7.4-10.4); Platelet Count 156 10^3/uL (130-400); Red Blood Cell Count 3.52 10^6/uL (4.70-6.10); Red Cell Dist. Width 12.6 % (11.5-14.5); White Blood Cell Count 11.8 10^3/uL (4.8-10.8)
[2023-06-25 04:38] LABS: Glucose - Point of Care 102 mg/dl (70-99)
[2023-06-25] MEDS: ANCEF 5 IV ×2 (04:42→11:57)
[2023-06-25] MEDS: DILAUDID 0.5 MG IV (04:46)
[2023-06-25] MEDS: NORVASC 5 MG PO (04:47)
[2023-06-25 05:02] LABS: Blood Urea Nitrogen 18 mg/dl (9-20); Calcium 6.9 mg/dl (8.4-10.2); Carbon Dioxide 21 mmol/L (22-30); Chloride 112 mmol/L (98-107); Estimated Creatinine Clearance > 125 ml/min; Glucose 97 mg/dl (70-99); Magnesium 1.8 mg/dl (1.6-2.3); Potassium 3.7 mmol/L (3.5-5.1); Sodium 139 mmol/L (135-145); eGFR > 60.00
[2023-06-25] MEDS: KCL 40 MEQ PO (05:34)
[2023-06-25] MEDS: TYLENOL 1000 MG PO ×3 (05:40→22:10)
[2023-06-25 05:52] LABS: Glucose - Point of Care 105 mg/dl (70-99)
--- NOTE | 2023-06-25 06:00 | PTCARENOTE ---
AM labs and EKG reviewed w CT SYLVIA Villatoro. orders received for Norvasc 5mg Po and KCL 40mEq PO. RIJ SLIC catheter d/c'd without incident. valle catheter d/c'd @ 0530. right radial art line and Cardene gtt d/c'd 1 hr post Norvasc. pt assisted OOB to
chair, weight obtained. VSS. SR. 2LNC. pt resting comfortably.
--- NOTE | 2023-06-25 06:04 | W.PN.CT ---
Today's Communication / Plan
-
-pod #1
-no issues overnight
-drips: Insulin. Cardene turned off after gave Norvasc at 5 am
-CT output: 2 meds 85/140, 2 pleur 130/280; LLE ESTHER 12/03 in 12/24 hrs
-d/cd a-line/ slic
-d/cd Miller
-continue insulin
-current meds (ASA, Plavix, Crestor, Norvasc for radial graft, Protonix). BB and Amio held postop for transient Mobitz 1 AVB (has pre-existing 1st degree AVB)
-encourage IS, OOb
Assessment / Plan
-
- Mv-CAD - s/p CABG x 4 (CHRISTIAN to LAD, L RA to OM1, GSV to D1, GSV to L PDA); LLE and L RA evh on 06/24/[address] Meehan, pod #1
- Intraop NICOLAS: LVEF is 55-60%, no regional wma, nl RV fxn
- HTN
- HLD
- DM II (HgA1c 6.9)
- BPH
- Bipolar disorder
- Migraine
- L TKR
- R rotator cuff repair
- Nasal septoplasty
- Pre-existing 1st degree AVB
- Acute postop blood loss anemia - stable without transfusion
- Acute postop atelectasis
- Acute postop transient Mobitz 1 AVB postop- BB and Amio held
- Suspected acute postop pericarditis, + rub
Discussed patient care with: Nursing and Care Team
Subjective
Procedure
- s/p CABG x 4 (CHRISTIAN to LAD, L RA to OM1, GSV to D1, GSV to L PDA); LLE and L RA evh on 06/24/[address] Meehan
-
Date of Service: June 24, 2023
Objective Data
-
Lab Results
06/24/23 18:16
06/24/23 14:38
PT 17.4 Sec (11.4-14.6) H 06/24/23 14:38
INR 1.42 06/24/23 14:38
APTT 30.1 Sec (23.4-35.0) 06/24/23 14:38
Vital Signs
Vital Signs
Temp Pulse Resp BP Pulse Ox
99.2 F 76 22 113/64 97
06/24/23 22:00 06/24/23 22:00 06/24/23 22:00 06/24/23 22:00 06/24/23 22:00
CT Intake/Output/Weight
06/24/23 06/24/23 06/25/23
06:59 18:59 06:59
Intake Total 185.2 / 292.2 107.0 / 292.2
Output Total 705 / 995 290 / 995
Balance -519.8 / -702.8 -183.0 / -702.8
SaO2: 97
Physical Exam
-
General: Awake and AOx3
Cardiovascular: Regular rate & rhythm, No Murmurs and Rub (loud)
Respiratory: Decreased Breath Sounds
Sternum: Stable
Incision: Clean and Dressing Intact
Extremities: No Edema (2+ DP b/l. LLE ESTHER drain with minimal drainage. 1+ hand edema b/l)
Data Reviewed
-
Lab Results: Results Reviewed
Medications: Active Meds Reviewed
Chest X-Ray: Report Reviewed and Image Reviewed
ECG: Report Reviewed and Image Reviewed
--- NOTE | 2023-06-25 07:10 | W.PN.INTV ---
Today's Communication / Plan
Recommendations
Asp prec
IS
Reconsult prn
Assessment
-
Assessment:
Mr Patricio Cotton is a 67/M adm 06-23 for scheduled CABG for multivessel CAD. Seen by Dr Meehan at office for evaluation of surgical intervention for multivessel CAD. Received CABG x4, seen at CVICU, still sedated, well synchronized to MV
Impression:
CAD, s/p CABG x 4 (CHRISTIAN to LAD, L RA to OM1, GSV to D1, GSV to L PDA) 06-23
Conditions [employer]:
Angina
HTN
HLD
T2DM
PAD
Cervical spine disc disease
BPH
OA L knee s/p L TKR
Bipolar disease
L inguinal hernia repair
Trigeminal neuralgia
Migraine
Occipital neuralgia
Insomnia
Post COVID chronic fatigue
Nonsmoker
Plan:
Extubated post surgery
Preop CXR 05-10 PA/lat with no abnormalities
Postop CXR: ET, RIJ cordis, chest/med tubes in place. Sternotomy wiring, surgical clips. L basilar atelectatic changes
Today's CXR with interim extubation and no infiltrates
Pressors/antihypertensive/inotropes/diuretics will be provided as needed
Monitor chest tube output
Monitor hemoglobin
Monitor platelet count and coags
Transfuse blood product if needed
CT surgery following chest tubes
Monitor blood sugar
Insulin drip per protocol
DVT prophylaxis
Early nutrition
Early mobilization
D/w Mr Cotton
Reconsult as needed
Subjective Dataa
Subjective Data
Date of Service:
Date of Service: June 25, 2023
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
Subjective:
No major events reported overnight
Extubated per surgery
Sitting in chair
Denies major complaints
In great spirits
Review of Systems
General: Fever (n), Sweats (n), Chills and Satisfactory Appetite (n)
HEENT: Epistaxis and Dysphagia (n)
Cardiopulmonary: Dyspnea, Chest Pain (incisional) and Hemoptysis (n)
GI: Abdominal Pain (n), Nausea (n) and Vomiting
Neuro: Weakness (n)
Objective Data
Data Reviewed
Vital Signs / I&O / Oxygen:
Vital Signs
Temp Pulse Resp BP Pulse Ox
99.5 F 66 16 134/69 98
06/25/23 05:00 06/25/23 07:00 06/25/23 05:30 06/25/23 05:59 06/25/23 07:00
Intake and Output
06/24/23 06/25/23 06/26/23
06:59 06:59 06:59
Intake Total 571.0 / 594.0 23.0 / 23.0
Output Total 1585 / 1655 70 / 70
Balance -1014.0 / -1061.0 -47.0 / -47.0
SaO2 [CPAP/PSV] 100
SaO2 [SIMV] 100
SaO2 98
Nasal Cannula flow liters per 2
minute
Physical Exam
General: Comfortable
HEENT: Normocephalic and Moist Mucous Membranes
Cardiovascular: Regular Rhythm, Murmur (n) and Peripheral Edema (n)
Respiratory: Clear and Non-Labored Respirations
GI: Soft, Non Distended and Non Tender
Neurology: Awake, AO x 3 and No Motor Deficits
Skin: Warm
Labs/Micro/Reports
Lab Data
06/25/23 03:01
06/25/23 03:01
Laboratory Results
06/24/23 06/24/23
14:38 16:04
PT 17.4 H
INR 1.42
APTT 30.1
pH 7.36 7.35
pCO2 43 45
pO2 206 H 139 H
HCO3 24.3 24.8
O2 Delivery Level
--- NOTE | 2023-06-25 07:25 | W.PN.ANS.POP ---
Anesthesia Post Operative
- Anesthesia Post Op Note
Vital Signs Stable-See Nursing Note: Yes
Airway Patent: Yes
Adequate Pain Control: Yes
Change in Mental Status: No
Current Postoperative Nausea & Vomiting: No
Anesthesia Complications: No
General Anesthetic Recall: No
Unplanned Admission: No
Post Op Hydration Adequate: Yes
[2023-06-25] MEDS: ROXICODONE 5 MG PO ×3 (07:33→21:22)
[2023-06-25] MEDS: LOW STRENGTH ASPIRIN 81 MG PO (07:34)
[2023-06-25] MEDS: NEURONTIN 100 MG PO ×3 (07:34→22:10)
[2023-06-25] MEDS: LIDOCAINE 4% PATCH 1 PATCH TOPICAL (07:36)
[2023-06-25] MEDS: NOVOLOG FLEXPEN SC ×3 (07:58→16:15)
[2023-06-25] MEDS: BACTROBAN 2% OINTMENT 1 APPLIC NASAL ×2 (08:05→19:11)
[2023-06-25 08:11] LABS: Glucose - Point of Care 125 mg/dl (70-99)
[2023-06-25] MEDS: CALCIUM GLUCONATE 100 IV (08:11)
[2023-06-25] MEDS: NOVOLIN R INSULIN INFUSION 100 IV (08:12)
[2023-06-25] MEDS: PLAVIX 75 MG PO (08:16)
[2023-06-25] MEDS: MAGNESIUM OXIDE 500 MG PO ×2 (08:16→19:11)
[2023-06-25] MEDS: LOPRESSOR 12.5 MG PO ×2 (08:16→19:11)
[2023-06-25] MEDS: PROTONIX 40 MG PO (08:16)
[2023-06-25] MEDS: SENOKOT-S 1 TABLET PO ×2 (08:16→19:11)
--- NOTE | 2023-06-25 08:46 | PTCARENOTE ---
Patient received from production shift supervisor resting comfortably oob in chair, AAO X 3. NSR via cm, SaO2 @ 99% on 2lnc. RIJ Cordis w/kvo infusing. Mediastinal chest tubes x 2, L and R pleural chest tubes, both sets Y-connected to separate pleurevacs, placed to
-20cm suction w/no air leaks noted. All procedural sites stable. Patient updated to plan of care for the day, in agreement. See work list for full assessment and interventions performed.
--- NOTE | 2023-06-25 09:37 | PN.DE.MGMTRT ---
Insulin Management
- -
06/25/2023 Diabetes Management Consult
Patient admitted 06/23 for CABG x 4. POD 1. PMH HTN, HLD, CAD, PAD, BPH, type 2 diabetes, bipolar, migraines. A1C on admission 6.9, cr .6, eGFR >60. Prior to admission was taking metformin 1000 mg BID for diabetes.
Patient is awake alert and oriented, able to participate in discussion regarding diabetes management. States he has a glucose monitor but it is old would like a new meter.
Patient is currently on glycemic protocol insulin infusion, glucose range 105 to 148 requiring 3 to 4 units of insulin per hour. Will continue glycemic protocol today and assess in AM for readiness to transition. Will add Farxiga or Jardiance to
regimen. Discussed new medication benefits with patient he is agreeable. Requested CM check cost.
Diabetes History
- -
Type of Diabetes: 2
Pre-Admission Diabetes Regimen
06/24/23 06/25/23
14:38 03:01
Creatinine 0.7 0.6 L
Lab Results
Hemoglobin A1c 6.9 % (4.0-5.6) H 06/19/23 08:42
Insulin Pump Settings
IP Diabetes Regimen
06/24/23 06/24/23 06/24/23
14:38 14:39 16:03
Glucose 125 H
POC Glucose 137 H 135 H
06/24/23 06/24/23 06/24/23
17:03 17:54 18:54
Glucose
POC Glucose 113 H 137 H 148 H
06/24/23 06/24/23 06/25/23
20:57 23:51 00:53
Glucose
POC Glucose 135 H 110 H 97
06/25/23 06/25/23 06/25/23
02:55 03:01 04:37
Glucose 97
POC Glucose 117 H 102 H
06/25/23 06/25/23
05:51 08:09
Glucose
POC Glucose 105 H 125 H
Patient Education
[2023-06-25 10:02] LABS: Glucose - Point of Care 81 mg/dl (70-99)
--- NOTE | 2023-06-25 10:30 | CM ---
Chart reviewed. Patient was OOB sitting in the chair. Patient is independent of ADLS, lives with his in a 2 STH, 1 BLAISE, 0 DME. Plan is for the patient to return home when medically stable for discharge. CM to follow
[2023-06-25] MEDS: FLEXERIL 5 MG PO ×2 (10:39→19:15)
--- NOTE | 2023-06-25 10:46 | W.PN.CARDCBS ---
Addendum entered and electronically signed by Ulisses Rosen DO 06/25/23 12:14:
I saw and examined the patient.
The Payroll Lead's note was reviewed and I agree with the note.
Comment:
Plan:
Cont post op care
s/p CABG
Lopressor resumed this AM. Cont Norvasc for radial artery.
Amiodarone to be resumed today.
Remains sinus
CT care per CT surgery.
Original Note:
Today's Communication / Plan
-
continue post op care
follow EKG
Impression / Plan
-
Primary Care Physician: GAIL Kilpatrick
Primary Couture Alterations Dressmaker: Dr. Ga Barcenas
Impression:
Presented 06/24/2023 for elective CABG
Multivessel coronary artery disease
s/p CABG x 4 (WOODWARD-LAD, Lt Radial-OM1, GSV to D1, GSV to L PDA)
Hypertension
Hyperlipidemia
Type 2 diabetes
PAD
Cervical spine disc disease
BPH
OA L knee s/p L TKR
Bipolar disease
L inguinal hernia repair
Trigeminal neuralgia
Migraine
Occipital neuralgia
Insomnia
Post COVID chronic fatigue
Echo 12/2022 ([facility]): EF 55 to 60%, mild MR with mild MAC, mild AI, RVSP 30 mmHg
Nuclear stress test 01/09/2023: mild to moderate area of inferior ischemia
LHC 06/03/23:Left Main: Normal; LAD: ostial 40% stenosis with diffuse moderate nonobstructive proximal disease. The mid LAD has smooth 50 to 70% disease with normal distal flow and good surgical target with only mild luminal irregularities. The LAD
gives rise to 1 major diagonal branch which has a ostial 60-70% stenosis with normal flow. Left Circumflex: The left circumflex is a large-caliber dominant vessel. The major first obtuse marginal branch is flush occluded and fills via left to left
collaterals. The distal circumflex gives rise to 4 left-sided posterior left ventricular branches and the left sided posterior descending artery is proximally occluded and fills via left to left collaterals. Right Coronary: Proximal total
occlusion. There appears to be RV marginal branch filling from left to right collaterals.
Plan:
-MVCAD s/p CABG x 4 (WOODWARD->LAD, Lt Radial-OM1, GSV->D1, GSV->L PDA) 06/24/23
-Intra-op NICOLAS with EF 55-60%. No wall motion abnormalities are seen. Trace to mild mitral regurgitation is seen.
-sitting up in chair
-in SR. EKG 06/24 with evidence of likely pericarditis, follow
-lopressor/amio held yesterday for transient wenckebach noted immediately post op, none noted on review of tele overnight. lopressor resumed this AM. amio to be resumed this afternoon. continue norvasc for radial artery spasm
-hgb stable at 11.5. continue asa, plavix
-continue post op care, OOB/IS as able
-preop was on norvasc, imdur, losartan, toprol. would resume as needed closer to DC
-OP follow up with ATC
-d/w nursing
HPI 06/24/2023:
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 Echocardiography performed in December 2022 was benign. Nuclear perfusion imaging stress
test performed January 09, 2023 showed a mild to moderate area of inferior ischemia. He had persistent angina on medical therapy and is referred for cardiac catheterization which was performed on 06/03/2023 and demonstrated multivessel obstructive
coronary artery disease including ostial LAD, mid LAD ostial diagonal disease occluded first obtuse marginal with left to left collaterals LPDA occlusion with left to left carotid collaterals and chronic total occlusion of RCA with [id number]
collaterals. Patient was referred to CT surgery for surgical evaluation and CABG. Patient was electively admitted 06/24/2023 and underwent CABG x 4. Cardiology being asked to see patient for postoperative medical management
Progress Note - Couture Alterations Dressmaker
Subjective
Date of Service: June 25, 2023
overall feeling well. reports some post op discomfort
Objective
Labs:
06/25/23 03:01
06/25/23 03:01
Labs
Hgb 11.5 g/dL (13.0-18.0) L 06/25/23 03:01
Hct 31.1 % (39.0-52.0) L 06/25/23 03:01
Plt Count 156 10^3/uL (130-400) 06/25/23 03:01
PT 17.4 Sec (11.4-14.6) H 06/24/23 14:38
INR 1.42 06/24/23 14:38
APTT 30.1 Sec (23.4-35.0) 06/24/23 14:38
Sodium 139 mmol/L (135-145) 06/25/23 03:01
Potassium 3.7 mmol/L (3.5-5.1) 06/25/23 03:01
BUN 18 mg/dl (9-20) 06/25/23 03:01
Creatinine 0.6 mg/dL (0.7-1.3) L 06/25/23 03:01
Glucose 97 mg/dl (70-99) 06/25/23 03:01
Vital Signs and I&O:
Vital Signs
Temp Pulse Resp BP Pulse Ox
98.7 F 66 16 115/62 99
06/25/23 08:30 06/25/23 10:04 06/25/23 08:30 06/25/23 10:00 06/25/23 08:30
Vital Signs
Temp Pulse Resp BP Pulse Ox
98.7 F 66 16 115/62 99
06/25/23 08:30 06/25/23 10:04 06/25/23 08:30 06/25/23 10:00 06/25/23 08:30
Intake & Output
06/23/23 06/24/23 06/25/23 06/26/23
07:59 07:59 07:59 07:59
Intake Total 594.0 / 594.0 279 / 279
Output Total 1665 / 1665 130 / 130
Balance -1071.0 / -1071.0 149 / 149
Physical Exam
Physical Exam
GEN: No distress, awake, alert, oriented x3. sitting in chair
HEENT: supple, anicteric, mmm, eomi
LUNGS: diminished BS B/L, no wheezes
CV: Reg, S1/S2, no murmur
EXT: No cyanosis, clubbing, edema
NEURO: Gross non-focal
SKIN: Warm, pink, dry. No rash. CTs in place
[2023-06-25] MEDS: TORADOL 15 MG IV ×3 (11:57→23:56)
[2023-06-25 12:05] LABS: Glucose - Point of Care 125 mg/dl (70-99)
--- NOTE | 2023-06-25 12:11 | PTCARENOTE ---
VS obtained, stable. Patient resting comfortably, at bedside.
[2023-06-25] MEDS: NSS IV (12:52)
--- NOTE | 2023-06-25 13:28 | CM ---
Addendum entered by Pauline Carreon RN 06/25/23 13:49:
Patient is agreeable to the cost
Original Note:
Pricing on Farxiga 10mg through the patient's prescription plan, [employer], ID# [id number], and the patient will need to pay $350 for the first month and then they are responsible for 24% which will cost the patient $137.50
Pricing on Jardiance 10mg daily is $357.11 for the first month and then the patient is responsible for 24% of cost which is $144.41
[2023-06-25 14:06] LABS: Glucose - Point of Care 114 mg/dl (70-99)
[2023-06-25 15:59] LABS: Glucose - Point of Care 76 mg/dl (70-99)
[2023-06-25] MEDS: PACERONE 200 MG PO ×2 (15:59→22:10)
[2023-06-25] MEDS: CORDARONE 103 MG IV (16:01)
--- NOTE | 2023-06-25 16:13 | PTCARENOTE ---
VS obtained, assessment stable. Patient resting comfortably, states pain controlled at this time. Denies urge to void, bladder scan performed, results conveyed to JAZLYN Wilner.
[2023-06-25 17:03] LABS: Glucose - Point of Care 77 mg/dl (70-99)
[2023-06-25] MEDS: CRESTOR 20 MG PO (17:57)
[2023-06-25] MEDS: CYMBALTA DELAYED RELEASE 60 MG PO (17:57)
[2023-06-25 18:03] LABS: Glucose - Point of Care 91 mg/dl (70-99)
[2023-06-25 19:08] LABS: Glucose - Point of Care 163 mg/dl (70-99)
--- NOTE | 2023-06-25 19:30 | PTCARENOTE ---
Received pt from daystnft; pt resting in chair, AAOx4, states pain is 6/10, see MAR; VSS, NSR on monitor; heart sounds audible, right radial, left ulnar, and DP pulses palpable, no edema noted; lung sounds diminished throughout, spo2 97% on 2 LNC,
x2 MS and r/l pleural CT to -20 wall suction, no air leaks, no tidaling, no crepitus; hypoactive BS x4 quadrants, abdomen soft non tender; pt is due to void since remove of valle catheter durn , will continue to monitor via bladder scans,
see worklist; surgical sites maintained to include ESTHER drain; right IJ cordis and PIV maintained; insulin gtt infusing; call demond within reach; will continue to monitor.
[2023-06-25 20:15] LABS: Glucose - Point of Care 173 mg/dl (70-99)
--- NOTE | 2023-06-25 21:00 | PTCARENOTE ---
Pt assessment unchanged; NSR on monitor, VSS; pt is due to void, pt attempted to void but could not, BS @ 2100 for 357 ml of urine; CVPA made aware and requested to wait until 0000 for next BS/attempt to void; will continue to monitor.
[2023-06-25 21:07] LABS: Glucose - Point of Care 169 mg/dl (70-99)
[2023-06-25 22:10] LABS: Glucose - Point of Care 152 mg/dl (70-99)
[2023-06-25 23:56] LABS: Glucose - Point of Care 144 mg/dl (70-99)
[2023-06-26] VITALS (21 sets, daily range): BP systolic 94–148; BP diastolic 48–72; PULSE 71; O2SAT 92–95; BMI 27.7
--- NOTE | 2023-06-26 01:00 | PTCARENOTE ---
At 0000 pt was bladder scanned for 472ml of urine; pt was informed that if he is unable to void, he would need to receive a straight catheterization to empty his bladder; pt attempted to void via urinal while lying in be, this was unsuccessful; pt
was assisted in standing up to void, this attempt was also unsuccessful; pt requested to try once more while sitting on the side of the bed, this was unsuccessful; At 0100 a 14fr straight catheter was used to drain 475ml of dark yellow urine from
bladder; pt stated that he felt relief after; call edmond within reach; will continue to monitor.
[2023-06-26] MEDS: ROXICODONE 5 MG PO ×4 (01:22→20:34)
[2023-06-26] MEDS: FLOMAX 0.400000000000000022 MG PO ×2 (01:22→08:13)
[2023-06-26 02:18] LABS: Glucose - Point of Care 156 mg/dl (70-99)
[2023-06-26 03:39] LABS: Blood Urea Nitrogen 27 mg/dl (9-20); Calcium 8.3 mg/dl (8.4-10.2); Carbon Dioxide 23 mmol/L (22-30); Chloride 101 mmol/L (98-107); Estimated Creatinine Clearance 98 ml/min; Glucose 141 mg/dl (70-99); Magnesium 2.4 mg/dl (1.6-2.3); Potassium 4.3 mmol/L (3.5-5.1); Sodium 132 mmol/L (135-145); eGFR > 60.00
[2023-06-26 03:49] LABS: Hematocrit 28.8 % (39.0-52.0); Hemoglobin 10.3 g/dL (13.0-18.0); Mean Corp Hgb Conc. 35.8 g/dL (33.0-37.0); Mean Corpuscular Hgb 32.6 pg (27.0-31.0); Mean Corpuscular Volume 91.1 fL (80.0-94.0); Mean Platelet Volume 11.4 fL (7.4-10.4); Platelet Count 136 10^3/uL (130-400); Red Blood Cell Count 3.16 10^6/uL (4.70-6.10); Red Cell Dist. Width 12.5 % (11.5-14.5); White Blood Cell Count 9.8 10^3/uL (4.8-10.8)
--- NOTE | 2023-06-26 04:00 | PTCARENOTE ---
Pt assessment unchanged; NSR on monitor, VSS; pt resting comfortably in bed; call edmond within reach; will continue to monitor.
[2023-06-26 04:10] LABS: Glucose - Point of Care 177 mg/dl (70-99)
[2023-06-26] MEDS: FLEXERIL 5 MG PO ×3 (04:50→22:07)
[2023-06-26 04:56] LABS: Glucose - Point of Care 145 mg/dl (70-99)
[2023-06-26] MEDS: TYLENOL 1000 MG PO ×3 (05:00→22:04)
--- NOTE | 2023-06-26 05:05 | W.PN.CT ---
Today's Communication / Plan
-
-pod #2
-urinary retention - straight cathed for 475 cc at 1 am. Flomax given
-drips: insulin
-drains: 2 meds 50/180, 2 pleur 160/380. LLE ESTHER
-diurese (wt is up 7 lbs from preop)
-continue current meds (ASA, Plavix, Crestor, Amio, Lopressor, Protonix)
-encourage IS, OOB
Assessment / Plan
-
- Mv-CAD - s/p CABG x 4 (CHRISTIAN to LAD, L RA to OM1, GSV to D1, GSV to L PDA); LLE and L RA evh on 06/24/[address] Meehan, pod #2
- Intraop NICOLAS: LVEF is 55-60%, no regional wma, nl RV fxn
- HTN
- HLD
- DM II (HgA1c 6.9)
- BPH
- Bipolar disorder
- Migraine
- L TKR
- R rotator cuff repair
- Nasal septoplasty
- Pre-existing 1st degree AVB
- Acute postop blood loss anemia - stable without transfusion
- Acute postop atelectasis
- Acute postop transient Mobitz 1 AVB postop- BB and Amio held initially
- Suspected acute postop pericarditis, + rub
- Acute postop hypovolemia with subsequent hypervolemia
- Acute postop hyponatremia
- Acute postop urinary retention - started Flomax
Discussed patient care with: Nursing and Care Team
Subjective
Procedure
- s/p CABG x 4 (CHRISTIAN to LAD, L RA to OM1, GSV to D1, GSV to L PDA); LLE and L RA evh on 06/24/[address] Meehan
-
Date of Service: June 26, 2023
Objective Data
-
PT 17.4 Sec (11.4-14.6) H 06/24/23 14:38
INR 1.42 06/24/23 14:38
APTT 30.1 Sec (23.4-35.0) 06/24/23 14:38
Vital Signs
Vital Signs
Temp Pulse Resp BP Pulse Ox
99.4 F 60 20 97/58 96
06/25/23 19:00 06/25/23 22:30 06/25/23 22:00 06/25/23 22:00 06/25/23 22:30
CT Intake/Output/Weight
06/25/23 06/25/23 06/26/23
06:59 18:59 06:59
Intake Total 385.8 / 594.0 1001.0 / 1528.7 527.7 / 1528.7
Output Total 880 / 1655 380 / 445 65 / 445
Balance -494.2 / -1061.0 621.0 / 1083.7 462.7 / 1083.7
SaO2: 96
Physical Exam
-
General: Awake and AOx3
Cardiovascular: Regular rate & rhythm, No Murmurs and Rub
Respiratory: Rales (at bases. No wheeze) and Decreased Breath Sounds
Sternum: Stable
Incision: Clean, Dry and Intact
Extremities: Other (trace edema hands and lower extremities b/l.)
Data Reviewed
-
Lab Results: Results Reviewed
Medications: Active Meds Reviewed
Chest X-Ray: Report Reviewed and Image Reviewed
ECG: Report Reviewed and Image Reviewed
[2023-06-26 06:15] LABS: Glucose - Point of Care 122 mg/dl (70-99)
[2023-06-26 07:01] LABS: Glucose - Point of Care 119 mg/dl (70-99)
--- NOTE | 2023-06-26 07:36 | PN.DE.MGMTRT ---
Insulin Management
- -
06/26/2023: Diabetes Management F/U:
67 year old male admitted 06/23 for elective cardiac surgery. PMH: HTN, HLD, CAD, PAD, BPH, type 2 diabetes, bipolar, migraines.
A1C on admission 6.9%, cr .6, eGFR >60. Now POD #2 s/p CABG x 4. Prior to admission was taking metformin 1000 mg BID for diabetes.
Patient is awake A/O x3, sitting up in chair, offers no complaints, able to discuss management.
States he has a glucose monitor but it is old would like a new meter- Rajani Diabetes RN has provided pt with a new meter today.
Patient remains on glycemic protocol insulin infusion, glucose range 116 to 156, requiring 1.7- 4 units of insulin/hr.
Will continue glycemic protocol and transition off drip at lunch time. give 10 units Lantus x1, then drip off 1 hr after Lantus dose
Start Jardiance 10mg daily. resume Metformin 1000mg BID.
Discussed new medication benefits with patient and he was agreeable.
Diabetes History
- -
Type of Diabetes: 2
Pre-Admission Diabetes Regimen
06/26/23
02:15
Creatinine 0.9
Lab Results
Hemoglobin A1c 6.9 % (4.0-5.6) H 06/19/23 08:42
Insulin Pump Settings
IP Diabetes Regimen
06/25/23 06/25/23 06/25/23
08:09 10:00 12:04
Glucose
POC Glucose 125 H 81 125 H
06/25/23 06/25/23 06/25/23
14:04 15:58 17:01
Glucose
POC Glucose 114 H 76 77
06/25/23 06/25/23 06/25/23
18:01 19:06 20:14
Glucose
POC Glucose 91 163 H 173 H
06/25/23 06/25/2306/24/24
21:06 22:08 23:55
Glucose
POC Glucose 169 H 152 H 144 H
06/26/23 06/26/23 06/26/23
02:14 02:15 04:07
Glucose 141 H
POC Glucose 156 H 177 H
06/26/23 06/26/23 06/26/23
04:54 06:12 07:00
Glucose
POC Glucose 145 H 122 H 119 H
Meal type: Dinner
Meal type: Lunch
Amount consumed: 50%
Amount consumed: 90%
Patient Education
[2023-06-26 08:09] LABS: Glucose - Point of Care 116 mg/dl (70-99)
[2023-06-26] MEDS: LOW STRENGTH ASPIRIN 81 MG PO (08:13)
[2023-06-26] MEDS: PLAVIX 75 MG PO (08:13)
[2023-06-26] MEDS: NORVASC 5 MG PO (08:13)
[2023-06-26] MEDS: PACERONE 200 MG PO ×3 (08:13→22:05)
[2023-06-26] MEDS: SENOKOT-S 1 TABLET PO ×2 (08:13→20:35)
[2023-06-26] MEDS: MAGNESIUM OXIDE 500 MG PO (08:13)
[2023-06-26] MEDS: NEURONTIN 100 MG PO ×3 (08:13→22:05)
[2023-06-26] MEDS: PROTONIX 40 MG PO (08:13)
[2023-06-26] MEDS: LIDOCAINE 4% PATCH 1 PATCH TOPICAL (08:14)
[2023-06-26] MEDS: BACTROBAN 2% OINTMENT 1 APPLIC NASAL ×2 (08:14→20:30)
[2023-06-26] MEDS: KCL 20 MEQ PO (08:14)
[2023-06-26] MEDS: LOPRESSOR 12.5 MG PO ×2 (08:14→20:34)
[2023-06-26] MEDS: LASIX 40 MG IV (08:14)
--- NOTE | 2023-06-26 08:45 | PTCARENOTE ---
Assumed care of patient at 0700. Pt is awake, alert, and oriented. Pt with complaints of midsternal pain, PRN Roxicodone administered. Pt remains SR with HR 60's. BP 118/58 MAP 77. Pulse oximetry 94% on room air. Mediastinal chest tubes x2, pleural
chest tubes x2. No sign of air leak or crepitus, drainage serosanguineous. Pt tolerating PO diet. Pt having difficulty voiding, Flomax administered per order. Midsternal incision Aquacel dressing CDI. Left arm incision and right leg incisions
approximated. Left leg ESTHER drain in place. Pt remains on insulin gtt per glycemic protocol. Pt currently resting OOB in chair with call edmond within reach.
--- NOTE | 2023-06-26 08:50 | PTCARENOTE ---
Diabetes Education- Patricio requested a new glucometer. Provided him with the Contour Next GEN. 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 Discussed testing pattern and expected result.
Current A1C 6.9%. Education booklet with phone number provided. Information on outpt ed DSME classes, states he has taken them previously at [facility].
[2023-06-26] MEDS: JARDIANCE 10 MG PO (09:38)
[2023-06-26 10:40] LABS: Glucose - Point of Care 180 mg/dl (70-99)
[2023-06-26] MEDS: NOVOLOG FLEXPEN 4 UNITS SC (10:40)
[2023-06-26 10:54] LABS: Glucose - POC 149 mg/dl (65-99); HCO3 - POC 26 mmol/L (21-29); Hematocrit - POC 34 % PCV (42-52); Hemodilution- POC Yes; Hemoglobin Calculated - POC 11.5; Ionized Calcium - POC 1.09 mmol/L (1.12-1.27); O2 Saturation %Calculated-POC 99.9 5 (92-96); PCO2 - POC 40 mmHg (35-45); PO2 - POC 257 mmHg (80-100); Potassium - POC 4.6 mmol/L (3.6-5.0); Sodium - POC 142 mmol/L (135-145); pH - POC 7.41 (7.35-7.45)
[2023-06-26 10:54] LABS: B.E. - POC 1.5 mmol/L; Glucose - POC 176 mg/dl (65-99); HCO3 - POC 26 mmol/L (21-29); Hematocrit - POC 29 % PCV (42-52); Hemodilution- POC Yes; Ionized Calcium - POC 0.98 mmol/L (1.12-1.27); PCO2 - POC 38 mmHg (35-45); PO2 - POC 422 mmHg (80-100); Potassium - POC 4.9 mmol/L (3.6-5.0); Sodium - POC 141 mmol/L (135-145); pH - POC 7.44 (7.35-7.45)
[2023-06-26 10:54] LABS: B.E. - POC -1.8 mmol/L; Glucose - POC 128 mg/dl (65-99); HCO3 - POC 23 mmol/L (21-29); Hematocrit - POC 31 % PCV (42-52); Hemodilution- POC Yes; Hemoglobin Calculated - POC 10.6; Ionized Calcium - POC 1.29 mmol/L (1.12-1.27); O2 Saturation %Calculated-POC 99.9 5 (92-96); PCO2 - POC 40 mmHg (35-45); PO2 - POC 260 mmHg (80-100); Potassium - POC 3.7 mmol/L (3.6-5.0); Sodium - POC 144 mmol/L (135-145); pH - POC 7.37 (7.35-7.45)
[2023-06-26 10:54] LABS: B.E. - POC -0.4 mmol/L; Glucose - POC 167 mg/dl (65-99); HCO3 - POC 25 mmol/L (21-29); Hematocrit - POC 40 % PCV (42-52); Hemodilution- POC No; Hemoglobin Calculated - POC 13.6; Ionized Calcium - POC 1.19 mmol/L (1.12-1.27); O2 Saturation %Calculated-POC 99.8 5 (92-96); PCO2 - POC 41 mmHg (35-45); PO2 - POC 237 mmHg (80-100); Sodium - POC 141 mmol/L (135-145); pH - POC 7.39 (7.35-7.45)
[2023-06-26 10:54] LABS: B.E. - POC -2.3 mmol/L; Glucose - POC 180 mg/dl (65-99); HCO3 - POC 21 mmol/L (21-29); Hematocrit - POC 32 % PCV (42-52); Hemodilution- POC Yes; Hemoglobin Calculated - POC 10.9; Ionized Calcium - POC 1.04 mmol/L (1.12-1.27); O2 Saturation %Calculated-POC 99.6 5 (92-96); PCO2 - POC 28 mmHg (35-45); PO2 - POC 162 mmHg (80-100); Potassium - POC 4.6 mmol/L (3.6-5.0); Sodium - POC 140 mmol/L (135-145); pH - POC 7.47 (7.35-7.45)
[2023-06-26 10:54] LABS: Glucose - POC 162 mg/dl (65-99); HCO3 - POC 24 mmol/L (21-29); Hematocrit - POC 32 % PCV (42-52); Hemodilution- POC Yes; Hemoglobin Calculated - POC 10.8; Ionized Calcium - POC 1.06 mmol/L (1.12-1.27); O2 Saturation %Calculated-POC 99.9 5 (92-96); PCO2 - POC 38 mmHg (35-45); PO2 - POC 247 mmHg (80-100); Potassium - POC 4.2 mmol/L (3.6-5.0); Sodium - POC 142 mmol/L (135-145); pH - POC 7.42 (7.35-7.45)
--- NOTE | 2023-06-26 11:14 | CM ---
Chart reviewed. Patient is independent of ADLS, lives with his in a 2 STH, 1 BLAISE, 0 DME. Plan is for the patient to return home with CT Transitional RN. CM to follow
--- NOTE | 2023-06-26 11:19 | W.PN.CARDCBS ---
Today's Communication / Plan
-
Supportive postoperative care
Impression / Plan
-
Primary Care Physician: GAIL Kilpatrick
Primary Tipple Oiler: Dr. Ga Barcenas
Impression:
Presented 06/24/2023 for elective CABG
Multivessel coronary artery disease
s/p CABG x 4 (WOODWARD-LAD, Lt Radial-OM1, GSV to D1, GSV to L PDA)
Hypertension
Hyperlipidemia
Type 2 diabetes
PAD
Cervical spine disc disease
BPH
OA L knee s/p L TKR
Bipolar disease
L inguinal hernia repair
Trigeminal neuralgia
Migraine
Occipital neuralgia
Insomnia
Post COVID chronic fatigue
Echo 12/2022 ([facility]): EF 55 to 60%, mild MR with mild MAC, mild AI, RVSP 30 mmHg
Nuclear stress test 01/09/2023: mild to moderate area of inferior ischemia
LHC 06/03/23:Left Main: Normal; LAD: ostial 40% stenosis with diffuse moderate nonobstructive proximal disease. The mid LAD has smooth 50 to 70% disease with normal distal flow and good surgical target with only mild luminal irregularities. The LAD
gives rise to 1 major diagonal branch which has a ostial 60-70% stenosis with normal flow. Left Circumflex: The left circumflex is a large-caliber dominant vessel. The major first obtuse marginal branch is flush occluded and fills via left to left
collaterals. The distal circumflex gives rise to 4 left-sided posterior left ventricular branches and the left sided posterior descending artery is proximally occluded and fills via left to left collaterals. Right Coronary: Proximal total
occlusion. There appears to be RV marginal branch filling from left to right collaterals.
Plan:
-MVCAD s/p CABG x 4 (WOODWARD->LAD, Lt Radial-OM1, GSV->D1, GSV->L PDA) 06/24/23
-Intra-op NICOLAS with EF 55-60%. No wall motion abnormalities are seen. Trace to mild mitral regurgitation is seen.
-Hemodynamically stable off pressors
-Positive rub and EKG changes suggestive for postop pericarditis without significant symptoms.
-Transient Mobitz type I AV block postop now in sinus rhythm. Continue to monitor telemetry. Lopressor resumed.
-Continue norvasc for radial artery spasm
-Chest tube management per CT surgery
-Monitor urinary output/retention. Started on Flomax
-continue asa, plavix
-continue post op care, OOB/IS as able
-OP follow up with ATC
-d/w nursing
HPI 06/24/2023:
The patient is a 67-year-old man with a past medical history significant for hypertension who presented to outside diversional therapist's assistant with angina in December 2022. Echocardiography performed in December 2022 was benign. Nuclear perfusion imaging stress
test performed January 09, 2023 showed a mild to moderate area of inferior ischemia. He had persistent angina on medical therapy and is referred for cardiac catheterization which was performed on 06/03/2023 and demonstrated multivessel obstructive
coronary artery disease including ostial LAD, mid LAD ostial diagonal disease occluded first obtuse marginal with left to left collaterals LPDA occlusion with left to left carotid collaterals and chronic total occlusion of RCA with [id number]
collaterals. Patient was referred to CT surgery for surgical evaluation and CABG. Patient was electively admitted 06/24/2023 and underwent CABG x 4. Cardiology being asked to see patient for postoperative medical management
Progress Note - Tipple Oiler
Subjective
Date of Service: June 26, 2023
Seen and examined. Sitting out of bed to chair. Still having difficulty with urinary retention requiring straight cath. Flomax initiated by CT surgery. Incisional pain but denies angina.
Objective
Labs:
06/26/23 02:15
06/26/23 02:15
Labs
Hgb 10.3 g/dL (13.0-18.0) L 06/26/23 02:15
Hct 28.8 % (39.0-52.0) L 06/26/23 02:15
Plt Count 136 10^3/uL (130-400) 06/26/23 02:15
PT 17.4 Sec (11.4-14.6) H 06/24/23 14:38
INR 1.42 06/24/23 14:38
APTT 30.1 Sec (23.4-35.0) 06/24/23 14:38
Sodium 132 mmol/L (135-145) L 06/26/23 02:15
Potassium 4.3 mmol/L (3.5-5.1) 06/26/23 02:15
BUN 27 mg/dl (9-20) H 06/26/23 02:15
Creatinine 0.9 mg/dL (0.7-1.3) 06/26/23 02:15
Glucose 141 mg/dl (70-99) H 06/26/23 02:15
Vital Signs and I&O:
Vital Signs
Temp Pulse Resp BP Pulse Ox
98.1 F 73 18 148/72 95
06/26/23 08:00 06/26/23 11:00 06/26/23 08:00 06/26/23 10:11 06/26/23 08:00
Vital Signs
Temp Pulse Resp BP Pulse Ox
98.1 F 73 18 148/72 95
06/26/23 08:00 06/26/23 11:00 06/26/23 08:00 06/26/23 10:11 06/26/23 08:00
Intake & Output
06/24/23 06/25/23 06/26/23 06/27/23
06:59 06:59 06:59 06:59
Intake Total 571.0 / 594.0 1627.9 / 2120.2 548.9 / 548.9
Output Total 1585 / 1655 1100 / 1130 690 / 690
Balance -1014.0 / -1061.0 527.9 / 990.2 -141.1 / -141.1
Physical Exam
Physical Exam
GEN: No distress, awake, alert, oriented x3. sitting in chair
HEENT: smmm
LUNGS: diminished BS B/L, no wheezes
CV: Reg, S1/S2, no murmur
EXT: No edema
NEURO: Gross non-focal
SKIN: Midline incision intact. CTs in place
[2023-06-26] MEDS: ROXICODONE 2.5 MG PO (11:20)
--- NOTE | 2023-06-26 11:46 | PTCARENOTE ---
Pt ambulated in hallway with cardiac rehab. Pt assisted back to bed. Mediastinal chest tubes d/c'd per order. Pleural chest tubes to bulb. Left leg ESTHER drain d/c'd by CT SCREEN PRINTING SUPERVISOR. Pt voiding this morning without issue. Pt remains in SR with HR 60's-70's.
BP 117/48 MAP 68.
[2023-06-26] MEDS: LANTUS 0.100000000000000006 UNITS SC (13:19)
[2023-06-26 13:20] LABS: Glucose - Point of Care 132 mg/dl (70-99)
[2023-06-26] MEDS: NSS 500 IV (13:20)
[2023-06-26 14:45] LABS: Glucose - Point of Care 99 mg/dl (70-99)
[2023-06-26] MEDS: NOVOLOG FLEXPEN SC ×2 (14:51→17:25)
--- NOTE | 2023-06-26 15:04 | PTCARENOTE ---
Pt with no changes in assessment. Pt remains SR with HR 70's. BP 124/51 MAP 72. Pulse oximetry 94% on room air. Lantus administered. Insulin gtt d/c'd.
[2023-06-26] MEDS: CYMBALTA DELAYED RELEASE 60 MG PO (17:21)
[2023-06-26] MEDS: CRESTOR 20 MG PO (17:22)
[2023-06-26] MEDS: GLUCOPHAGE 1000 MG PO (17:22)
[2023-06-26 17:27] LABS: Glucose - Point of Care 94 mg/dl (70-99)
--- NOTE | 2023-06-26 17:38 | PTCARENOTE ---
pt converted to uncontrolled AF w HR 120-130, bp 121/66. Pt is asymptomatic. Amiodarone bolus ordered.
[2023-06-26] MEDS: CORDARONE 103 MG IV (17:51)
[2023-06-26] MEDS: CORDARONE 518 MG IV (17:51)
--- NOTE | 2023-06-26 18:08 | PTCARENOTE ---
amiodarone bolus and infusion administered as ordered
--- NOTE | 2023-06-26 20:00 | PTCARENOTE ---
Addendum entered by Adriana Cunningham RN 06/26/23 22:42:
right radial and left ulnar pulses palpable.
Original Note:
Received pt from dayshift; pt resting comfortably in bed; pt is AAOx4, states pain is 7/10, see MAR for pain management; Afib on monitor, VSS; heart sounds audible, radial and DP pulses palpable, no edema noted; lung sounds diminished at b/l bases,
right and left pleural CT to bulb, spo2 91 on RA; + bs x4 quadrants, abdomen soft non tender; pt voiding clear yellow urine without difficulty; surgical sites maintained; right IJ cordis and PIV maintained; amiodarone gtt infusing; call edmond within
reach; will continue to monitor.
[2023-06-26] MEDS: MAGNESIUM OXIDE PO ×2 (20:34→22:10)
[2023-06-26 22:56] LABS: Glucose - Point of Care 175 mg/dl (70-99)
[2023-06-26] MEDS: DILAUDID 0.5 MG IV (22:57)
[2023-06-27] VITALS (13 sets, daily range): BP systolic 98–168; BP diastolic 59–73; PULSE 66; O2SAT 94–100; BMI 27.3
--- NOTE | 2023-06-27 | PTCARENOTE ---
Pt assessment unchanged; ongoing pain management, See MAR; call edmond with reach, will continue to monitor.
[2023-06-27] MEDS: ROXICODONE 5 MG PO ×2 (00:58→05:24)
[2023-06-27 03:56] LABS: Hematocrit 28.3 % (39.0-52.0); Hemoglobin 10.4 g/dL (13.0-18.0); Mean Corp Hgb Conc. 36.7 g/dL (33.0-37.0); Mean Corpuscular Hgb 32.9 pg (27.0-31.0); Mean Corpuscular Volume 89.6 fL (80.0-94.0); Mean Platelet Volume 11.1 fL (7.4-10.4); Platelet Count 141 10^3/uL (130-400); Red Blood Cell Count 3.16 10^6/uL (4.70-6.10); Red Cell Dist. Width 12.4 % (11.5-14.5); White Blood Cell Count 7.8 10^3/uL (4.8-10.8)
--- NOTE | 2023-06-27 04:00 | PTCARENOTE ---
Pt assessment unchanged; Afib on monitor, VSS; labs drawn and sent; call edmond within reach; will continue to monitor.
[2023-06-27 04:28] LABS: Blood Urea Nitrogen 26 mg/dl (9-20); Calcium 8.4 mg/dl (8.4-10.2); Carbon Dioxide 25 mmol/L (22-30); Chloride 101 mmol/L (98-107); Estimated Creatinine Clearance 110 ml/min; Glucose 118 mg/dl (70-99); Potassium 4.6 mmol/L (3.5-5.1); Sodium 135 mmol/L (135-145); eGFR > 60.00
[2023-06-27] MEDS: TYLENOL 1000 MG PO ×3 (05:22→22:06)
--- NOTE | 2023-06-27 06:37 | W.PN.CT ---
Addendum entered and electronically signed by Patricio Meehan MD 06/27/23 08:04:
I saw and examined the patient.
The PA's note was reviewed and I agree with the note.
Comment:
Looks good. Doing well
- D/C CTs
- Diuresis today
- Home tomorrow
Original Note:
Today's Communication / Plan
-
-pod #3
-no issues overnight
-remains in a-fib 90s-low 100s - on Amio drip @ 0.5
-CT output: L pleur , R pleur in 12/24 hrs
-diuresed well with 40 iv Lasix on 06/25 (UO 950/2700 in 12/24 hrs)
-current meds (Amio, Norvasc for radial graft, ASA, Plavix, Crestor, Lasix, Lopressor, Flomax, Protonix)
-encourage IS, OOB, ambulate
Assessment / Plan
-
- Mv-CAD - s/p CABG x 4 (CHRISTIAN to LAD, L RA to OM1, GSV to D1, GSV to L PDA); LLE and L RA evh on 06/24/[address] Meehan, pod #3
- Intraop NICOLAS: LVEF is 55-60%, no regional wma, nl RV fxn
- HTN
- HLD
- DM II (HgA1c 6.9)
- BPH
- Bipolar disorder
- Migraine
- L TKR
- R rotator cuff repair
- Nasal septoplasty
- Pre-existing 1st degree AVB
- Acute postop blood loss anemia - stable without transfusion
- Acute postop atelectasis
- Acute postop transient Mobitz 1 AVB postop- BB and Amio held initially
- Suspected acute postop pericarditis, + rub
- Acute postop hypovolemia with subsequent hypervolemia
- Acute postop hyponatremia
- Acute postop urinary retention - started Flomax, resolved
- Acute postop paroxysmal a-fib on 06/26/23 - tx with Amio bolus and drip
Discussed patient care with: Nursing and Care Team
Subjective
Procedure
- s/p CABG x 4 (CHRISTIAN to LAD, L RA to OM1, GSV to D1, GSV to L PDA); LLE and L RA evh on 06/24/[address] Meehan
-
Date of Service: June 27, 2023
Objective Data
-
PT 17.4 Sec (11.4-14.6) H 06/24/23 14:38
INR 1.42 06/24/23 14:38
APTT 30.1 Sec (23.4-35.0) 06/24/23 14:38
Vital Signs
Vital Signs
Temp Pulse Resp BP Pulse Ox
97.8 F 116 20 108/70 91
06/26/23 20:37 06/26/23 20:36 06/26/23 20:37 06/26/23 20:36 06/26/23 20:37
CT Intake/Output/Weight
06/26/23 06/26/23 06/27/23
06:59 18:59 06:59
Intake Total 626.9 / 2120.2 796.2 / 1406.1 609.9 / 1406.1
Output Total 720 / 1130 1870 / 2820 950 / 2820
Balance -93.1 / 990.2 -1073.8 / -1413.9 -340.1 / -1413.9
SaO2: 91
Physical Exam
-
General: Awake and AOx3
Cardiovascular: Regular rate & rhythm, No Murmurs and Rub
Respiratory: Rales (at bases. No wheeze) and Decreased Breath Sounds
Sternum: Stable
Incision: Clean, Dry and Intact
Extremities: Other (trace edema hands and lower extremities b/l.)
Data Reviewed
-
Lab Results: Results Reviewed
Medications: Active Meds Reviewed
Chest X-Ray: Report Reviewed and Image Reviewed
ECG: Report Reviewed and Image Reviewed
[2023-06-27 07:46] LABS: Glucose - Point of Care 130 mg/dl (70-99)
--- NOTE | 2023-06-27 08:15 | PTCARENOTE ---
Received pt from fast food shift lead RN; pt AAOx3 and resting comfortably in chair; NSR on monitor on monitor and VSS; Amiodarone infusing see flow sheet for details; lungs diminished; IS to 1000; CT x2 to bulb; positive bowel sounds; pt voiding clear
yellow urine; palpable pulses throughout; no edema noted; all surgical sites C/D/I; see nursing documentation for further details.
[2023-06-27 08:25] LABS: Glucose - Point of Care 145 mg/dl (70-99)
[2023-06-27] MEDS: BACTROBAN 2% OINTMENT 1 APPLIC NASAL ×2 (08:34→20:08)
[2023-06-27] MEDS: JARDIANCE 10 MG PO (08:35)
[2023-06-27] MEDS: NORVASC 5 MG PO (08:35)
[2023-06-27] MEDS: PACERONE 200 MG PO ×2 (08:35→16:59)
[2023-06-27] MEDS: LIDOCAINE 4% PATCH 1 PATCH TOPICAL (08:35)
[2023-06-27] MEDS: PLAVIX 75 MG PO (08:35)
[2023-06-27] MEDS: PROTONIX 40 MG PO (08:35)
[2023-06-27] MEDS: SENOKOT-S 1 TABLET PO ×2 (08:36→20:08)
[2023-06-27] MEDS: FLOMAX 0.400000000000000022 MG PO (08:36)
[2023-06-27] MEDS: MAGNESIUM OXIDE 500 MG PO ×2 (08:36→20:08)
[2023-06-27] MEDS: NEURONTIN 100 MG PO ×3 (08:36→22:06)
[2023-06-27] MEDS: GLUCOPHAGE 1000 MG PO ×2 (08:36→16:59)
[2023-06-27] MEDS: LOW STRENGTH ASPIRIN 81 MG PO (08:36)
[2023-06-27] MEDS: LOPRESSOR 12.5 MG PO (08:36)
[2023-06-27] MEDS: LASIX 40 MG IV (10:01)
--- NOTE | 2023-06-27 10:06 | PTCARENOTE ---
Right and Left Pleural Chest tubes removed.
--- NOTE | 2023-06-27 10:21 | W.PN.CARDCBS ---
Today's Communication / Plan
-
Remains in sinus rhythm and doing well. Continue amiodarone and metoprolol. Repeat EKG today.
Telemetry stable. Continue to follow. Did have some brief AV block.
Continue aspirin and Plavix.
Continue Norvasc Jardiance.
Hopeful for discharge in a.m.
Impression / Plan
-
Primary Care Physician: GAIL Kilpatrick
Primary Tube Fitter: Dr. Ga Barcenas
Impression:
Presented 06/24/2023 for elective CABG
Multivessel coronary artery disease
s/p CABG x 4 (WOODWARD-LAD, Lt Radial-OM1, GSV to D1, GSV to L PDA)
Hypertension
Hyperlipidemia
Type 2 diabetes
PAD
Cervical spine disc disease
BPH
OA L knee s/p L TKR
Bipolar disease
L inguinal hernia repair
Trigeminal neuralgia
Migraine
Occipital neuralgia
Insomnia
Post COVID chronic fatigue
Echo 12/2022 ([facility]): EF 55 to 60%, mild MR with mild MAC, mild AI, RVSP 30 mmHg
Nuclear stress test 01/09/2023: mild to moderate area of inferior ischemia
C 06/03/23:Left Main: Normal; LAD: ostial 40% stenosis with diffuse moderate nonobstructive proximal disease. The mid LAD has smooth 50 to 70% disease with normal distal flow and good surgical target with only mild luminal irregularities. The LAD
gives rise to 1 major diagonal branch which has a ostial 60-70% stenosis with normal flow. Left Circumflex: The left circumflex is a large-caliber dominant vessel. The major first obtuse marginal branch is flush occluded and fills via left to left
collaterals. The distal circumflex gives rise to 4 left-sided posterior left ventricular branches and the left sided posterior descending artery is proximally occluded and fills via left to left collaterals. Right Coronary: Proximal total
occlusion. There appears to be RV marginal branch filling from left to right collaterals.
Plan:
-MVCAD s/p CABG x 4 (WOODWARD->LAD, Lt Radial-OM1, GSV->D1, GSV->L PDA) 06/24/23
-Intra-op NICOLAS with EF 55-60%. No wall motion abnormalities are seen. Trace to mild mitral regurgitation is seen.
-Hemodynamically stable off pressors
-Positive rub and EKG changes suggestive for postop pericarditis without significant symptoms.
-Transient Mobitz type I AV block postop now in sinus rhythm. Continue to monitor telemetry. Continue amiodarone and metoprolol
-Continue norvasc for radial artery spasm
-Chest tube management per CT surgery
-Creatinine normal.
-continue asa, plavix
-continue post op care, OOB/IS as able
-OP follow up with ATC
HPI 06/24/2023:
The patient is a 67-year-old man with a past medical history significant for hypertension who presented to outside financial services officer with angina in December 2022. Echocardiography performed in December 2022 was benign. Nuclear perfusion imaging stress
test performed January 09, 2023 showed a mild to moderate area of inferior ischemia. He had persistent angina on medical therapy and is referred for cardiac catheterization which was performed on 06/03/2023 and demonstrated multivessel obstructive
coronary artery disease including ostial LAD, mid LAD ostial diagonal disease occluded first obtuse marginal with left to left collaterals LPDA occlusion with left to left carotid collaterals and chronic total occlusion of RCA with [id number]
collaterals. Patient was referred to CT surgery for surgical evaluation and CABG. Patient was electively admitted 06/24/2023 and underwent CABG x 4. Cardiology being asked to see patient for postoperative medical management
Progress Note - Tube Fitter
Subjective
Date of Service: June 27, 2023
denies chest pains/sob.
Objective
Labs:
06/27/23 03:42
06/27/23 03:42
Labs
Hgb 10.4 g/dL (13.0-18.0) L 06/27/23 03:42
Hct 28.3 % (39.0-52.0) L 06/27/23 03:42
Plt Count 141 10^3/uL (130-400) 06/27/23 03:42
PT 17.4 Sec (11.4-14.6) H 06/24/23 14:38
INR 1.42 06/24/23 14:38
APTT 30.1 Sec (23.4-35.0) 06/24/23 14:38
Sodium 135 mmol/L (135-145) 06/27/23 03:42
Potassium 4.6 mmol/L (3.5-5.1) 06/27/23 03:42
BUN 26 mg/dl (9-20) H 06/27/23 03:42
Creatinine 0.8 mg/dL (0.7-1.3) 06/27/23 03:42
Glucose 118 mg/dl (70-99) H 06/27/23 03:42
Vital Signs and I&O:
Vital Signs
Temp Pulse Resp BP Pulse Ox
97.7 F 79 20 126/59 95
06/27/23 08:00 06/27/23 08:37 06/27/23 08:00 06/27/23 08:37 06/27/23 09:31
Vital Signs
Temp Pulse Resp BP Pulse Ox
97.7 F 79 20 126/59 95
06/27/23 08:00 06/27/23 08:37 06/27/23 08:00 06/27/23 08:37 06/27/23 09:31
Intake & Output
06/25/23 06/26/23 06/27/23 06/28/23
06:59 06:59 06:59 06:59
Intake Total 571.0 / 594.0 1627.9 / 2120.2 1406.1 / 1406.1 106.8 / 106.8
Output Total 1585 / 1655 1100 / 1130 2865 / 2865 480 / 480
Balance -1014.0 / -1061.0 527.9 / 990.2 -1458.9 / -1458.9 -373.2 / -373.2
Physical Exam
Physical Exam
GEN: No distress, awake, Ox3
HEENT: supple, anicteric, mmm
LUNGS: CTA, no wheezes/rales
CV: Reg, S1/S2, no gallop
ABD: soft, BS+, NT/ND
EXT: No edema
NEURO: Gross non-focal
SKIN: sternotomy
--- NOTE | 2023-06-27 13:08 | PTCARENOTE ---
Assessment unchanged; NSR on monitor and VSS.
[2023-06-27 13:39] LABS: Glucose - Point of Care 155 mg/dl (70-99)
[2023-06-27] MEDS: NSS IV (14:22)
[2023-06-27] MEDS: CYMBALTA DELAYED RELEASE 60 MG PO (17:00)
[2023-06-27] MEDS: CRESTOR 20 MG PO (17:00)
[2023-06-27] MEDS: CORDARONE 518 MG IV (17:23)
[2023-06-27 17:30] LABS: Glucose - Point of Care 111 mg/dl (70-99)
[2023-06-27] MEDS: CORDARONE 103 MG IV (17:43)
--- NOTE | 2023-06-27 17:46 | PTCARENOTE ---
Pt ambulated in hallway with RN; A-fib on monitor; Amiodarone drip continued and Bolus ordered by CV SYSTEMS PROGRAMMER ANALYST; VSS.
--- NOTE | 2023-06-27 19:00 | PTCARENOTE ---
Assumed care of patient at 1900. Patient found in bed at time of assessment. Patient is AOx4, follows commands appropriately, moves all extremities. Patient is independent and ambulatory. Lung sounds are diminished in the bases, saO2 is 95% on RA.
Heart sounds have an irregular rate and rhythm, patient is in atrial fibrillation on the monitor, there are normal palpable pulses throughout. Trace pedal edema is noted. Patient has soft nontender abdomen with active BS no post op BM patient
reports flatus. Patient has R IJ cordis receiving KVO and amio gtt. There is R hand PIV available for intermittent infusion. HR ranging from 80-100s. All other VSS. No c/o pain.
[2023-06-27] MEDS: LOPRESSOR 25 MG PO (20:09)
[2023-06-27] MEDS: PACERONE PO (22:06)
--- NOTE | 2023-06-27 22:10 | PTCARENOTE ---
Patient converted from Afib to SR with first degree heart block at approximately 2149. HR in 60s. CT CONE MACHINE OPERATOR notified. Will maintain amio gtt at this time.
[2023-06-27 22:13] LABS: Glucose - Point of Care 166 mg/dl (70-99)
--- NOTE | 2023-06-28 | PTCARENOTE ---
Patient reassessed. VSS. Remains in SB on the monitor. Amio gtt maintained.
[2023-06-28 03:00] VITALS: BP 125/68
[2023-06-28 04:17] VITALS: BP 125/68
[2023-06-28 04:31] LABS: Hematocrit 29.2 % (39.0-52.0); Hemoglobin 10.5 g/dL (13.0-18.0); Mean Corpuscular Hgb 32.8 pg (27.0-31.0); Mean Corpuscular Volume 91.3 fL (80.0-94.0); Mean Platelet Volume 10.8 fL (7.4-10.4); Platelet Count 155 10^3/uL (130-400); Red Cell Dist. Width 12.2 % (11.5-14.5); White Blood Cell Count 7.3 10^3/uL (4.8-10.8)
[2023-06-28 04:48] LABS: Blood Urea Nitrogen 32 mg/dl (9-20); Calcium 8.4 mg/dl (8.4-10.2); Carbon Dioxide 24 mmol/L (22-30); Chloride 100 mmol/L (98-107); Estimated Creatinine Clearance 98 ml/min; Glucose 137 mg/dl (70-99); Magnesium 2.2 mg/dl (1.6-2.3); Potassium 4.1 mmol/L (3.5-5.1); Sodium 136 mmol/L (135-145); eGFR > 60.00
--- NOTE | 2023-06-28 04:52 | PTCARENOTE ---
Patient reassessed. VSS. Remains in SB on the monitor. Patient is stable.
--- NOTE | 2023-06-28 05:18 | W.PN.CT ---
Addendum entered and electronically signed by Patricio Meehan MD 06/28/23 08:31:
I saw and examined the patient.
The PA's note was reviewed and I agree with the note.
Comment:
POD#4
Repeat AF x 4 hrs yesterday. Converted to NSR. Increased BB. Will start Eliquis given second episode of AF
Continue ASA/plavix, norvasc, lopressor, statin
OOB/IS/ambulate
OK for home today
Original Note:
Today's Communication / Plan
-
-pod #4
-Converted to afib again at 1730 hrs, this AM Converted to NSR - on Amio drip @ 0.5. BB had been increased
-diuresed well with 40 iv Lasix on 06/25 and 06/26 (UO 750/2550 in 12/24 hrs)
-current meds (Amio, Norvasc for radial graft, ASA, Plavix, Crestor, Lasix, Lopressor, Flomax, Protonix)
-encourage IS, OOB, ambulate
Assessment / Plan
-
- Mv-CAD - s/p CABG x 4 (CHRISTIAN to LAD, L RA to OM1, GSV to D1, GSV to L PDA); LLE and L RA evh on 06/24/[address] Meehan, pod #4
- Intraop NICOLAS: LVEF is 55-60%, no regional wma, nl RV fxn
- HTN
- HLD
- DM II (HgA1c 6.9)
- BPH
- Bipolar disorder
- Migraine
- L TKR
- R rotator cuff repair
- Nasal septoplasty
- Pre-existing 1st degree AVB
- Acute postop blood loss anemia - stable without transfusion
- Acute postop atelectasis
- Acute postop transient Mobitz 1 AVB postop- BB and Amio held initially
- Suspected acute postop pericarditis, + rub
- Acute postop hypovolemia with subsequent hypervolemia
- Acute postop hyponatremia
- Acute postop urinary retention - started Flomax, resolved
- Acute postop paroxysmal a-fib on 06/26/23 - tx with Amio bolus and drip
Subjective
Procedure
- s/p CABG x 4 (CHRISTIAN to LAD, L RA to OM1, GSV to D1, GSV to L PDA); LLE and L RA evh on 06/24/[address] Meehan
-
Date of Service: June 28, 2023
Converted to Afib again 1730 hrs yesterday, amio gtt restarted and BB increased, now back in NSR this AM. Otherwise no events overnight.
Objective Data
-
Lab Results
06/28/23 04:21
06/28/23 04:21
PT 17.4 Sec (11.4-14.6) H 06/24/23 14:38
INR 1.42 06/24/23 14:38
APTT 30.1 Sec (23.4-35.0) 06/24/23 14:38
Vital Signs
Vital Signs
Temp Pulse Resp BP Pulse Ox
98 F 62 20 133/73 92
06/27/23 23:00 06/27/23 23:30 06/27/23 23:00 06/27/23 23:00 06/27/23 23:00
CT Intake/Output/Weight
06/27/23 06/27/23 06/28/23
06:59 18:59 06:59
Intake Total 609.9 / 1406.1 383.4 / 383.4
Output Total 995 / 2865 2630 / 2630
Balance -385.1 / -1458.9 -2246.6 / -2246.6
SaO2: 92
Physical Exam
-
General: Awake, Oriented and AOx3
Cardiovascular: Regular rate & rhythm and No Murmurs
Respiratory: Clear and Decreased Breath Sounds
Sternum: Stable
Incision: Clean and Dressing Intact
Extremities: No Edema
Data Reviewed
-
Lab Results: Results Reviewed
Medications: Active Meds Reviewed
Chest X-Ray: Report Reviewed
ECG: Report Reviewed
[2023-06-28] MEDS: TYLENOL 1000 MG PO (05:47)
[2023-06-28 06:00] VITALS: BMI 26.7
--- NOTE | 2023-06-28 07:00 | PTCARENOTE ---
Bedside walking rounds report received. Patient seen on rounds resting in chair. Ambulating ad marcela. Amio gtt dc per ct surgery. SB at rest with rates in the 50's. 1st degree avb. Vitals sign stable.
[2023-06-28 08:33] VITALS: BP 148/69
[2023-06-28 08:35] VITALS: BP 148/69
[2023-06-28] MEDS: NORVASC 5 MG PO (08:41)
[2023-06-28] MEDS: PROTONIX 40 MG PO (08:41)
[2023-06-28] MEDS: JARDIANCE 10 MG PO (08:42)
[2023-06-28] MEDS: FLOMAX 0.400000000000000022 MG PO (08:42)
[2023-06-28] MEDS: PACERONE 200 MG PO (08:42)
[2023-06-28] MEDS: MAGNESIUM OXIDE 500 MG PO (08:42)
[2023-06-28] MEDS: SENOKOT-S 1 TABLET PO (08:42)
[2023-06-28] MEDS: LOPRESSOR 25 MG PO (08:42)
[2023-06-28] MEDS: GLUCOPHAGE 1000 MG PO (08:42)
[2023-06-28] MEDS: LOW STRENGTH ASPIRIN 81 MG PO (08:42)
[2023-06-28] MEDS: PLAVIX 75 MG PO (08:42)
[2023-06-28] MEDS: BACTROBAN 2% OINTMENT 1 APPLIC NASAL (08:43)
[2023-06-28] MEDS: NEURONTIN 100 MG PO (08:43)
[2023-06-28] MEDS: LIDOCAINE 4% PATCH TOPICAL (08:53)
[2023-06-28 08:56] LABS: Glucose - Point of Care 131 mg/dl (70-99)
[2023-06-28 09:58] VITALS: BP 126/68
--- NOTE | 2023-06-28 10:45 | W.DCSUMMARY ---
Discharge Summary
Discharge Data
Date of Admission: 06/24/23
Date of Discharge: 06/28/23
Total time spent discharging patient (in min): 40
-
Pending Results: No
Hospital Course
Primary care physician:
Dr. Faina Cruz
Outpatient mechanical project engineer:
Dr. Zachary North
Inpatient consultants:
DCA, solar installation foreman, DM DRIVER GUARD management
Procedures:
1. CABG x 4 (CHRISTIAN to LAD, L RA to OM1, GSV to D1, GSV to L PDA)
Primary Diagnosis:
1. Multivessel CAD
Secondary Diagnoses:
1. Hypertension
2. Hyperlipidemia
3. Type 2 diabetes mellitus
4. BPH
5. Bipolar
6. Migraines
HPI: 67-year-old male that was seen in the office by Dr. Meehan presented electively on 06/23 for a coronary artery bypass graft surgery.
Hospital course: Patient was electively admitted on 06/[address] Meehan. Postoperatively he returned to the CVICU on Cardene and Levophed. Patient had episodes of dropped beats so amiodarone and beta-blockers were temporarily held.
Patient's Precedex was weaned off and patient was extubated by 1620. Aspirin was resumed. On 06/24 postoperative day #1 patient's arterial line, Miller, and slight catheter were removed. Patient was started on Plavix and Norvasc,Cardene was weaned
off for his radial harvest. Patient was noted to have some pericarditis on EKG and physical exam so patient was started on Toradol. Patient had a short burst of atrial fibrillation and was given an amnio bolus and oral amnio was resumed. On 06/25
postoperative day #2 mediastinal chest tube was removed and pleural chest tubes were bulb. A ESTHER drain was placed IntraOp for his lower extremity vein harvest and that was discontinued without issue. Insulin drip was turned off and patient was
started on Lantus and oral diabetes medications. Flomax was started for some urinary retention. Patient then converted into atrial fibrillation with rapid ventricular response. He was given another Amio bolus and started on an amnio infusion per
our protocol. On 06/26 postoperative day #3, patient converted back to sinus rhythm at 6:45 AM. However, by 5:30 PM patient converted back into atrial fibrillation he was given another Amio bolus and drip was continued. His metoprolol was
increased to 25 mg twice a day. Pleural chest tube was removed and a 40 mg of IV Lasix was given. On 06/27 postoperative day #4, patient's Amio infusion was discontinued. He converted back to sinus rhythm overnight. Due to these recurrent
episodes of atrial fibrillation patient will be discharged on aspirin and Eliquis instead of aspirin and Plavix. Patient's 2 view chest x-ray remained stable. He was deemed stable for discharge and all prescriptions were sent to his preferred
pharmacy.
Home medication changes:
see below
Discharge Plan
-
Patient Disposition: Home (Routine Discharge)
Discharge Diagnosis/Procedures: CABG
Condition: Fair
Diet: Low Cholesterol, Low Sodium and Diabetic, Carb Controlled
Activity: No strenuous activity
Driving Restrictions: Not until seen by your Dr
Bathing Restrictions: OK to Shower
Other Services: Cardiac Rehab
Specialty Instructions: Weigh Daily- Call MD for wt gain/loss 3 lbs overnight/5 lbs in 1 week
Activity Restrictions/Additional Instructions:
ACTIVITY:
-No strenuous activity: no heavy lifting, pushing, pulling anything over 15 pounds for one month
-continue to use stairs as tolerated
DRIVING RESTRICTIONS:
-No driving for one month or until approved by your surgeon
WOUND CARE:
-Shower daily. Use soap & water.
-No lotions, creams or powders on incision area.
DIET:
-continue a low fat/low cholesterol diet.
-IF you are diabetic, continue carb controlled diet.
CARDIAC REHAB:
-Please make appointment to start in 5-6 weeks with your local hospital program. (See Cardiac Rehabilitation Discharge Booklet).
SPECIALTY INSTRUCTIONS:
-Weigh yourself daily. Call your physician for any weight gain/loss of 3 lbs overnight or 5 lbs in one week.
-REPORT any clicking noise or uneven appearance of your sternum to your surgeon immediately.
-If you smoke, you are instructed to quit. The [place] smoking hotline phone number is [phone]
Referrals:
CT Transitional Care Nurse [Outside] (The Cardiothoracic Transitional Care Nurse will call you to set up a visit in 1-2 days.)
[facility]. Cardiac Rehab [Outside] - 07/29/23 1:00 pm
(Cardiac Rehab Orientation appointment is on Thursday07/29/23 at 1PM.
The Cardiac Rehab gym is located on the first floor of the [facility].)
Faina Cruz CRNP [Family Provider] -
Zachary Barcenas MD [Non-Admitting Privileges] - 08/17/23 10:30 am
Patricio Meehan MD [Active] - 07/28/23 1:30 pm
Additional Discharge Medication Instructions: Stop your isosorbide mononitrate.
Your losartan dose has been decreased.
You will be on amiodarone 200mg Twice a day for 30 days after discharge, then you will take 200mg until directed by your mechanical project engineer
Prescriptions:
New
cyclobenzaprine 10 mg Tablet
5 mg PO Q8HPRN PRN (Reason: muscle spasm) 7 Days Qty: 20 0RF
Eliquis 5 mg Tablet
5 mg PO BID Qty: 30 0RF
acetaminophen 325 mg Tablet
650 mg PO Q6HPRN PRN (Reason: mild pain,headache,temp >101F ) Qty: 0 0RF
amiodarone [Pacerone] 200 mg Tablet
200 mg PO BID 30 Days Qty: 60 0RF
gabapentin 100 mg Capsule
100 mg PO TID Qty: 60 0RF
oxycodone 5 mg Tablet
5 mg PO Q8HPRN PRN (Reason: Severe pain) Qty: 20 0RF
Jardiance 10 mg Tablet
10 mg PO DAILY Qty: 60 0RF
amiodarone 200 mg tablet
200 mg PO DAILY Qty: 90 0RF
Rx Instructions:
Start 30 days AFTER discharge
Continued
aspirin 81 mg Tablet,Chewable
81 mg PO QPM
multivitamin Tablet
1 tab PO DAILY
metoprolol succinate 50 mg Tablet Extended Release 24 Hr
50 mg PO QPM
metformin 1,000 mg Tablet
1,000 mg PO BID
ketoconazole 2 % Cream
1 applic TOPICAL BID PRN (Reason: as needed fungal skin)
Saccharomyces boulardii 250 mg Capsule
250 mg PO .EVERY OTHER DAY
duloxetine 60 mg Capsule,Delayed Release(Dr/Ec)
60 mg PO QPM
PreserVision AREDS 4,296 mcg-226 mg-90 mg Capsule
1 cap PO QAM AND QPM
rosuvastatin 20 mg Tablet
20 mg PO QPM
amlodipine 5 mg Tablet
5 mg PO DAILY
Changed
losartan 50 mg Tablet
25 mg PO QPM Qty: 0 0RF
Held
Medical Marijuana
1 tab PO PRN PRN (Reason: pain)
Hold Instructions: Resume on 07/29/23.
Discontinued
isosorbide mononitrate 60 mg Tablet Extended Release 24 Hr
60 mg PO QPM
nitroglycerin 0.4 mg Tablet, Sublingual
0.4 mg SUBLINGUAL Q5-15M PRN (Reason: chest pain)
Discharge Orders:
Discharge Patient (As Directed); Ordered 06/28/23
Ordered By: Bertha Darby
Care Plan Goals
Care Plan Goals:
Problem: Readiness for enhanced knowledge related to diagnosis and treatment plan
Goal: Understand your diagnosis and treatment plan needs, including medications if applicable.
Instructions: Know your diagnosis, underlying causes and treatment plan options, including medications if applicable. Consult with your health care team to learn about your diagnosis and treatment plan, including medications if applicable.
Discharge Date and Time
Print Language: [place]
--- NOTE | 2023-06-28 10:59 | W.[place]-PDMP ---
[place]-PD[place]
-
Checked the [place]- Prescription Drug Monitoring Program website, no red flags identified; safe to proceed with prescription.
--- NOTE | 2023-06-28 11:00 | PTCARENOTE ---
No acute changes. Assisted patient back to bed. Right IJ cordis sutures and cordis catheter dc. Sternal aquacell removed. Patient is clear for discharge to home. Chest tube sites open to air. patient will shower at home and instructions given on
same
[2023-06-28 11:22] VITALS: BP 118/84
--- NOTE | 2023-06-28 12:41 | CM ---
priced elikokois with pts perscript plan, andrez, his first month copay is $363 which includes his deductible, after that he will [pay $140/month. 30 day free coupon given to pt. called [facility] in [place]- the medication is in stock. spoke to
pt and hs is agreeable to this ramos. Joanie Darby, SHAHZAD aware.
== END 2023-06-28 12:30 | disposition home or self-care (01) | DRG 236 ==
LOC: CVICU 04:48
PROVIDERS: Anesthesiology; Nurse Practitioner; ADMITTING PHYSICIAN Thoracic Surgery (Cardiothoracic Vascular Surgery); FAMILY PHYSICIAN Nurse Practitioner; OTHER PHYSICIAN Internal Medicine Interventional Cardiology; OTHER PHYSICIAN Internal Medicine Pulmonary Disease
PROC: 5A1221Z Performance of Cardiac Output, Continuous (ICD-10-PCS; 2023-06-24)
PROC: 021109W Bypass Coronary Artery, Two Arteries from Aorta with Autologous Venous Tissue, Open Approach (ICD-10-PCS; 2023-06-24)
PROC: B24BZZ4 Ultrasonography of Heart with Aorta, Transesophageal (ICD-10-PCS; 2023-06-24)
PROC: 06BQ4ZZ Excision of Left Saphenous Vein, Percutaneous Endoscopic Approach (ICD-10-PCS; 2023-06-24)
PROC: 02100AW Bypass Coronary Artery, One Artery from Aorta with Autologous Arterial Tissue, Open Approach (ICD-10-PCS; 2023-06-24)
PROC: 05BA4ZZ Excision of Left Brachial Vein, Percutaneous Endoscopic Approach (ICD-10-PCS; 2023-06-24)
PROC: 02100ZC Bypass Coronary Artery, One Artery from Thoracic Artery, Open Approach (ICD-10-PCS; 2023-06-24)
DX: I25.119 Atherosclerotic heart disease of native coronary artery with unspecified angina pectoris (principal); I30.9 Acute pericarditis, unspecified; D62 Acute posthemorrhagic anemia; J98.11 Atelectasis; I10 Essential (primary) hypertension; E11.51 Type 2 diabetes mellitus with diabetic peripheral angiopathy without gangrene; R53.82 Chronic fatigue, unspecified; U09.9 Post COVID-19 condition, unspecified; F31.9 Bipolar disorder, unspecified; E78.00 Pure hypercholesterolemia, unspecified; I25.82 Chronic total occlusion of coronary artery; N40.1 Benign prostatic hyperplasia with lower urinary tract symptoms; I44.1 Atrioventricular block, second degree; R33.8 Other retention of urine; I48.0 Paroxysmal atrial fibrillation; E86.1 Hypovolemia; G47.00 Insomnia, unspecified; Z79.82 Long term (current) use of aspirin; Z79.84 Long term (current) use of oral hypoglycemic drugs; Z79.899 Other long term (current) drug therapy; Z82.49 Family history of ischemic heart disease and other diseases of the circulatory system
CPT/HCPCS: 36415; 71045; 71046; 80048; 80053; 81003; 82248; 82330; 82565; 82805; 82947; 82962; 83036; 83735; 84132; 84302; 84520; 85014; 85018; 85025; 85027; 85049; 85610; 85730; 86850; 86900; 86901; 86920; 87070; 93005; 93312; 93320; 93325; 93880; 94002; C1713; P9045; P9047

== ENCOUNTER 2023-07-03 19:24 | Emergency (ER) | payer MEDICARE, BC, SELFPAY ==
[2023-07-03 19:29] VITALS: BP 143/68
--- NOTE | 2023-07-03 20:06 | ED.GENMED ---
History of Present Illness
General
Chief Complaint: Abdominal Symptoms
Source: patient, records and spouse
Time Seen by Provider: 07/03/23 19:57
Travel History
Have you had any contact with someone who has COVID-19?: No
Do you have any symptoms of coronavirus? Fever > 100 degrees, chills, cough, shortness of breath, sore throat, loss of taste or smell, muscle aches, or headache?: No
History of Present Illness
History of Present Illness:
67-year-old male with past medical history of recent CABG x 4, hypertension, hyperlipidemia, diabetes, BPH presenting to the emergency department for evaluation of urinary frequency x 48 hours accompanied with nausea, body aches and generally
feeling unwell. Patient states that he feels as if he is going to urinate every 10 to 15 minutes. Notes that while hospitalized he had a urinary catheter and also needed to be straight cath and he states since that time he feels as if the symptoms
started. He notes no fevers at home but states he has felt 'warm'. Patient states that while in the hospital he was on Flomax however is not currently taking this and is not on any other medications for BPH. Patient denies any back or flank
pain, testicular swelling, chest pain, shortness of breath or any other concerns.
Past History
Past History
ED Past Medical History: CAD, HTN, Hypercholesterolemia, NIDDM, Psychiatric and Other (BPH)
ED Past Surgical History: Cardiac, Orthopedic and Other
Social History
Tobacco: Non-smoker
Alcohol: Occasional
Drug: None
Personal:
Living: with family
Review of Systems
Review of Systems
All Other Systems: ROS reviewed and negative except as documented in HPI and ROS
Phy Exam
Physical Exam
Physical Exam:
GENERAL: Alert , in no apparent distress
EYE: clear conjunctiva b/l
HEAD: NCAT
ENT: o/p clr, mmm.
CARDIAC: Regular rate and rhythm .
LUNGS: Clear breath sounds bilaterally, no acute respiratory distress, no wheezes/rales/rhonchi. Well-healing surgical scars vertically oriented over the sternum as well as smaller incision over the upper part of the abdomen
ABDOMEN: Soft, without focal tenderness, no r/g, no cvat
Rectal exam: Light brown stool, no prostate tenderness or bogginess appreciated
NEUROLOGICAL: Alert and oriented
SKIN: Warm and dry, skin intact.
MUSCULOSKELETAL: No edema, well perfused. Well-healing incision over the volar surface of the left wrist
PSYCH: Normal and appropriate interaction.
Scores
Heart Failure Risk
Heart Failure Risk Score: Not Applicable
Heart Score for Chest Pain Patients
STEMI patient?: Not applicable
Withdrawal Assessment of Alcohol
Withdrawal Assessment Completed?: Not applicable
Course
Orders/Labs/Results
Orders:
Orders
07/03/23 20:05
Ondansetron Injectable [Zofran] 4 mg IV NOW STA
07/03/23 20:06
Bladder Scan- Treatment ONCE
07/03/23 20:16
Basic Metabolic Panel Urgent
Complete Blood Count/With Diff Urgent
Urinalysis Reflex To Culture Urgent
Date Specimen was Collected: 07/03/23
Time Specimen was Collected: 20:06
07/03/23 20:59
Ciprofloxacin HCl [Cipro] 500 mg PO NOW STA
Tamsulosin [Flomax] 0.4 mg PO NOW STA
07/03/23 21:00
Electrocardiogram (*1) Urgent
Reason for Study: QTc Monitoring
EKG- Treatment ONCE
Abnormal Lab Results
07/03/23
20:16
RBC 3.62 L 10^6/uL
(4.70-6.10)
Hgb 11.7 L g/dL
(13.0-18.0)
Hct 32.0 L %
(39.0-52.0)
MCH 32.3 H pg
(27.0-31.0)
Abs Immat Gran (auto) 0.1 H 10^3/uL
(0-0.05)
Absolute Neuts (auto) 9.1 H 10^3/uL
(1.4-6.5)
Absolute Lymphs (auto) 0.4 L 10^3/uL
(1.2-3.4)
Absolute Monos (auto) 0.7 H 10^3/uL
(0.1-0.6)
Immature Gran % 0.8 H %
(0-0.5)
Neutrophils % 87.5 H %
(42.2-75.2)
Lymphocytes % 3.9 L %
(20.5-51.1)
Sodium 131 L mmol/L
(135-145)
Chloride 97 L mmol/L
(98-107)
Glucose 117 H mg/dl
(70-99)
Urine Ketones 2+ A
(Negative)
Urine Glucose 3+ A
(Negative)
07/03/23 20:16
07/03/23 20:16
Vital Signs
Initial and Last Documented VS:
Initial Vital Signs
Temp Pulse Resp BP Pulse Ox
99.6 F 87 20 143/68 98
07/03/23 19:29 07/03/23 19:29 07/03/23 19:29 07/03/23 19:29 07/03/23 19:29
Last Documented Vital Signs
Temp Pulse Resp BP Pulse Ox
99.6 F 75 19 117/75 93
07/03/23 19:29 07/03/23 21:15 07/03/23 21:15 07/03/23 21:00 07/03/23 21:15
MDM/Problems Addressed
Differential Diagnosis Includes:
Cystitis, prostatitis, pyelonephritis, urinary retention
MDM/Problems Addressed:
67-year-old male status post recent CABG done last week presenting to the emergency department with urinary frequency and urgency. Denies dysuria, hematuria or feeling of incomplete emptying. He has a reported history of BPH however is not on any
medications for this. He was catheterized while in the hospital and notes that he was on Flomax at that time as well so it is unclear as to why patient is currently not taking this at home. Patient reports no fever, here temperature is 99.6. Will
check labs and urinalysis. Bladder scan ordered. Reassessment following
Chronic conditions affecting care: Other (BPH)
*Pulse Oximetry
Patient hypoxic: no
*EKG
Interpreted by ED Provider?: Yes
Rate: normal
Rhythm: sinus
Interval: first degree heart block and long QT
*Critical Care Note
Total Time (30-74mins, 75-104mins- exclusive of procedures): Not Applicable
Data Reviewed
Review of Other/Old Records Reveals: Labs and Records
Source: patient, records and spouse
Patient Management
Escalation/DeEscalation of care consider admission/obs:
Patient's labs and urine are unremarkable. Based off his history I do think it is reasonable to treat with antibiotics for prostatitis as well as given his history of BPH I do think patient should be on Flomax or medication equivalent. Due to his
recent cardiac surgery as well as medications we did check an EKG which shows a borderline prolonged QT. I had an extensive conversation with patient as well as his significant other about my concern with the medications that he is requesting to be
discharged home with. I offered to trial a different antibiotic for suspected prostatitis however patient states that he has had this before and knows that Cipro is usually the only thing that works for him. I had already sent a prescription for
Zofran to patient's pharmacy and I strongly encouraged patient to avoid this medication especially if he is going to be taking the Cipro. Patient expressed understanding as to why was cautioning him about use of these medications with prolonged QT.
He is otherwise stable for discharge home.
ED Attending Note
-
Portions of this chart may have been created with voice recognition software.� Occasional wrong word or��sound alike� substitutions may have occurred due to the inherent limitations of voice recognition software.
Discharge Plan
Departure
Patient Disposition: Home (Routine Discharge)
Date of Disposition: 07/03/23
Time of Disposition: 20:55
Patient with high blood pressure during this ER visit?: Yes
Discharge Problem:
Acute prostatitis
Instructions: Prostatitis (DC)
Prescriptions:
New
tamsulosin [Flomax] 0.4 mg capsule
0.4 mg PO DAILY Qty: 20 0RF
ciprofloxacin HCl [Cipro] 500 mg tablet
500 mg PO BID 7 Days Qty: 14 0RF
No Action
aspirin 81 mg Tablet,Chewable
81 mg PO QPM
multivitamin Tablet
1 tab PO DAILY
metoprolol succinate 50 mg Tablet Extended Release 24 Hr
50 mg PO QPM
metformin 1,000 mg Tablet
1,000 mg PO BID
ketoconazole 2 % Cream
1 applic TOPICAL BID PRN (Reason: as needed fungal skin)
Saccharomyces boulardii 250 mg Capsule
250 mg PO .EVERY OTHER DAY
duloxetine 60 mg Capsule,Delayed Release(Dr/Ec)
60 mg PO QPM
PreserVision AREDS 4,296 mcg-226 mg-90 mg Capsule
1 cap PO QAM AND QPM
rosuvastatin 20 mg Tablet
20 mg PO QPM
Medical Marijuana
1 tab PO PRN PRN (Reason: pain)
Hold Instructions: Resume on 07/29/23.
amlodipine 5 mg Tablet
5 mg PO DAILY
cyclobenzaprine 10 mg Tablet
5 mg PO Q8HPRN PRN (Reason: muscle spasm) 7 Days Qty: 20 0RF
Eliquis 5 mg Tablet
5 mg PO BID Qty: 30 0RF
acetaminophen 325 mg Tablet
650 mg PO Q6HPRN PRN (Reason: mild pain,headache,temp >101F ) Qty: 0 0RF
gabapentin 100 mg Capsule
100 mg PO TID Qty: 60 0RF
oxycodone 5 mg Tablet
5 mg PO Q8HPRN PRN (Reason: Severe pain) Qty: 20 0RF
Jardiance 10 mg Tablet
10 mg PO DAILY Qty: 60 0RF
amiodarone 200 mg tablet
200 mg PO DAILY Qty: 90 0RF
Rx Instructions:
Start 30 days AFTER discharge
losartan 50 mg Tablet
25 mg PO QPM Qty: 0 0RF
Referrals:
Faina Cruz CRNP [Family Provider] -
Interventions
Interventions:
*Risk Screen - Suicide Last Done: 07/03/23 19:29
*General Assessment Last Done: 07/03/23 19:29
*Neglect/Abuse Screening Last Done: 07/03/23 19:29
ED- Fall Risk Assessment Last Done: 07/03/23 21:30
*ED COVID-19 Vaccine History Last Done: 07/03/23 20:24
*Nursing Disposition Last Done: 07/03/23 21:30
MB-Emjfys-Vcwqjcqnah Assessment Last Done: 07/03/23 20:15
Discharge Date and Time
Discharge Date/Time: 07/03/23 21:31
Print Language: PASHTO
[2023-07-03 20:13] VITALS: BP 143/63
[2023-07-03] MEDS: ZOFRAN 4 MG IV (20:16)
[2023-07-03 20:25] LABS: % Basophils 0.2 % (0-2); % Eosinophils 1.3 % (0-6); % Immature Granulocytes 0.8 % (0-0.5); % Lymphocytes 3.9 % (20.5-51.1); % Monocytes 6.3 % (1.7-9.3); % Neutrophils 87.5 % (42.2-75.2); Absolute Eosinophils 0.1 10^3/uL (0-0.7); Absolute Immature Granulocytes 0.1 10^3/uL (0-0.05); Absolute Lymphocytes 0.4 10^3/uL (1.2-3.4); Absolute Monocytes 0.7 10^3/uL (0.1-0.6); Absolute Neutrophils 9.1 10^3/uL (1.4-6.5); Hemoglobin 11.7 g/dL (13.0-18.0); Mean Corp Hgb Conc. 36.6 g/dL (33.0-37.0); Mean Corpuscular Hgb 32.3 pg (27.0-31.0); Mean Corpuscular Volume 88.4 fL (80.0-94.0); Mean Platelet Volume 9.7 fL (7.4-10.4); Nucleated Red Blood Cells % 0 % (-); Platelet Count 177 10^3/uL (130-400); Red Blood Cell Count 3.62 10^6/uL (4.70-6.10); Red Cell Dist. Width 12.5 % (11.5-14.5); White Blood Cell Count 10.4 10^3/uL (4.8-10.8)
[2023-07-03 20:27] LABS: Urine Albumin Negative (Neg - Trace); Urine Bilirubin Negative (Negative); Urine Character Clear (Clear); Urine Color Yellow; Urine Glucose 3+ (Negative); Urine Ketone 2+ (Negative); Urine Leukocyte Negative (Negative); Urine Nitrite Negative (Negative); Urine Occult Blood Negative (Negative); Urine Urobilinogen Negative (Neg - 1+); Urine pH 6.5 (5.0-9.0)
[2023-07-03 20:52] LABS: Blood Urea Nitrogen 17 mg/dl (9-20); Calcium 8.6 mg/dl (8.4-10.2); Carbon Dioxide 22 mmol/L (22-30); Glucose 117 mg/dl (70-99); eGFR > 60.00
[2023-07-03 21:00] VITALS: BP 117/75
[2023-07-03 21:13] LABS: Chloride 97 mmol/L (98-107); Sodium 131 mmol/L (135-145)
[2023-07-03] MEDS: CIPRO 500 MG PO (21:21)
[2023-07-03] MEDS: FLOMAX 0.400000000000000022 MG PO (21:21)
== END 2023-07-03 21:31 | disposition home or self-care (01) ==
LOC: EMR 19:24
PROVIDERS: Physician Assistant Medical; EMERGENCY PHYSICIAN Emergency Medicine; FAMILY PHYSICIAN Nurse Practitioner
DX: N41.0 Acute prostatitis (principal); N40.1 Benign prostatic hyperplasia with lower urinary tract symptoms; R35.0 Frequency of micturition; R39.15 Urgency of urination; I10 Essential (primary) hypertension; E78.00 Pure hypercholesterolemia, unspecified; E11.9 Type 2 diabetes mellitus without complications
CPT/HCPCS: 99284; 96374; 51798; 80048; 81003; 85025; 93005

== ENCOUNTER 2023-08-07 10:30 | Outpatient (RCR) | payer MEDICARE, BC, SELFPAY ==
[2023-08-07 10:52] LABS: Glucose - Point of Care 120 mg/dl (70-99)
[2023-08-07 11:34] LABS: Glucose - Point of Care 113 mg/dl (70-99)
== END 2023-08-07 23:59 | disposition home or self-care (01) ==
LOC: CRHB 10:30
PROVIDERS: ATTENDING PHYSICIAN Internal Medicine Cardiovascular Disease; FAMILY PHYSICIAN Nurse Practitioner
DX: I25.10 Atherosclerotic heart disease of native coronary artery without angina pectoris (principal); Z95.1 Presence of aortocoronary bypass graft
CPT/HCPCS: 82962; G0422; G0423

== ENCOUNTER 2023-09-02 08:29 | Outpatient (RCR) | payer MEDICARE, BC, SELFPAY ==
[2023-08-10 08:20] LABS: Glucose - Point of Care 141 mg/dl (70-99)
[2023-08-10 09:20] LABS: Glucose - Point of Care 154 mg/dl (70-99)
[2023-08-12 08:14] LABS: Glucose - Point of Care 142 mg/dl (70-99)
[2023-08-12 09:13] LABS: Glucose - Point of Care 132 mg/dl (70-99)
[2023-08-17 08:26] LABS: Glucose - Point of Care 144 mg/dl (70-99)
[2023-08-17 09:26] LABS: Glucose - Point of Care 150 mg/dl (70-99)
[2023-08-19 08:21] LABS: Glucose - Point of Care 185 mg/dl (70-99)
[2023-08-19 09:17] LABS: Glucose - Point of Care 135 mg/dl (70-99)
[2023-08-24 08:17] LABS: Glucose - Point of Care 137 mg/dl (70-99)
[2023-08-24 09:20] LABS: Glucose - Point of Care 136 mg/dl (70-99)
== END 2023-09-02 23:59 | disposition home or self-care (01) ==
LOC: CRHB 08:29
PROVIDERS: ATTENDING PHYSICIAN Internal Medicine Cardiovascular Disease; FAMILY PHYSICIAN Nurse Practitioner
DX: I25.10 Atherosclerotic heart disease of native coronary artery without angina pectoris (principal); Z95.1 Presence of aortocoronary bypass graft
CPT/HCPCS: 82962; G0422; G0423

== ENCOUNTER 2023-09-28 08:38 | Outpatient (RCR) | payer MEDICARE, BC, SELFPAY | END 2023-09-28 23:59 | disposition home or self-care (01) | LOC: CRHB 08:38 | PROVIDERS: ATTENDING PHYSICIAN Internal Medicine Cardiovascular Disease; FAMILY PHYSICIAN Nurse Practitioner | DX: I25.10 Atherosclerotic heart disease of native coronary artery without angina pectoris (principal); Z95.1 Presence of aortocoronary bypass graft | CPT/HCPCS: G0422; G0423 ==

== ENCOUNTER → 2024-08-08 08:28 | Outpatient (REF) | payer MEDICARE, BC, SELFPAY | LOC: RCS 08:28 | PROVIDERS: ATTENDING PHYSICIAN Internal Medicine Cardiovascular Disease; FAMILY PHYSICIAN Nurse Practitioner | DX: I25.118 Atherosclerotic heart disease of native coronary artery with other forms of angina pectoris (principal); Z95.1 Presence of aortocoronary bypass graft | CPT/HCPCS: 93017 ==